=== PATIENT | female | born 2000 | race American Indian/Alaskan Native ===

== ENCOUNTER 2021-10-04 16:02 | Inpatient (IN) | payer OTHER ==
[2021-10-04] MEDS ORDERED: LACTATED RINGERS 500 ML IV ONE (17:00)
[2021-10-04 18:06] LABS: Hematocrit 32.1 % (30.3-42.9); Hemoglobin 10.3 gm/dl (10.1-14.3); Mean Corpuscular HGB Conc 32 % (30-34); Mean Corpuscular Volume 72 fl (79-97); Red Blood Count 4.47 M/mm3 (3.65-5.03); Red Cell Distribution Width 15.4 % (13.2-15.2)
[2021-10-04 18:26] LABS: Alanine Aminotransferase 11 units/L (7-56); Bilirubin,Urine NEG (Negative); Blood,Urine NEG (Negative); Color,Urine Yellow (Yellow); Protein,Urine <15 mg/dL mg/dL (Negative); Urobilinogen,Urine < 2.0 mg/dL (<2.0)
[2021-10-04 18:29] LABS: Platelet Count 131 K/mm3 (140-440)
[2021-10-04 18:32] LABS: Bacteria,Urine 2+ /HPF (Negative); Mucus,Urine FEW /HPF
[2021-10-04 19:00] LABS: Uric Acid 5.5 mg/dL (3.5-7.6)
[2021-10-04 19:03] LABS: Creatinine,Urine 71.4 mg/dL (0.1-20.0); Protein/Creatinine Ratio,Urine 0.31
--- NOTE | 2021-10-04 19:48 | History and Physical Report ---
History of Present Illness Date of examination: 10/04/21 Date of admission: 10/04/2021 Chief complaint: I was sent from the office. History of present illness: Pt is a @ 36.5 wks who presented to her visit with a c/o a MACK. It was noted during her visit that her blood pressure was 140/80. During her triage visit her blood pressure ranges 120-140's/80. Also of note her P/C ratio resulted as 0.31 and her platelet count 131. Her to this point has been uncomplicated. EDC Confirmation: 10/27/2021 Gestational Age: 36.5 weeks Past History : 1 Term Births: 0 Premature Births: 0 Living Children: 0 Para: 0 Mult. Births: 0 Prev : 0 Aborta: 0 Elect. Ab: 0 Spont. Ab: 0 Ectopics: 0 Past Medical History: Reviewed and updated today: Negative Past Medical History Past Surgical History: Reviewed and updated today: Negative Past Surgical History Family History Summary: Other Family Member - Has No Family History of Ovarvian Cancer - Entered On: 03/28/2021 Other Family Member - Has No Family History of Colon Cancer - Entered On: 03/28/2021 Other Family Member - Has Family History of Hypertension - Entered On: 03/28/2021 Other Family Member - Has Family History of Coronary Heart Disease - Entered On: 03/28/2021 Other Family Member - Has Family History Breast Cancer - Entered On: 03/28/2021 Social History: Marital Status: Single Children: 0 Occupation: [employer]/ [employer] student Smoking History: Patient has never smoked. Risk Factors: Smoked Tobacco Use: Never smoker Smokeless Tobacco Use: Never Counseled to Quit/Cut Down: yes Passive Smoke Exposure: no HIV High Risk Behavior: low risk Caffeine Use: 0 drinks per day Exercise: no Seatbelt Use: 100 % No Dietary Counseling Reason: pn yes Alcohol Use: yes Drinks per day: <1 Drug Use: yes Drug of Choice: marijuana Past Medical History Surgery (Non-compressor battery pellets): Negative Past Surgical History Abnormal PAP: negative Uterine Anomaly: negative Social Hx: Marital Status: Single Children: 0 Occupation: [employer]/ [employer] student Smoking History: Patient has never smoked. Infection History Hx of STD: none HIV Risk Eval: low risk Hepatitis B Risk Eval: low risk Personal hx. of genital herpes: no Genetic History Congenital Heart Defect: Mom: no Dad: no Kirk Disease: Mom: no Dad: no Thalassemia Mom: no Dad: no Neural Tube Defect Mom: no Dad: no Down's Syndrome Mom: no Dad: no Arley-Sachs Mom: no Dad: no Sickle Cell Disease/Trait Mom: no Dad: no Hemophilia Mom: no Dad: no Muscular Dystrophy Mom: no Dad: no Cystic Fibrosis Mom: no Dad: no Dary Chorea Mom: no Dad: no Mental Retardation Mom: no Dad: no Fragile X Mom: no Dad: no Other Genetic/Chromosomal Disorder Mom: no Dad: no Child w/other defect Mom: no Dad: no Active Medications (reviewed today): One Daily 27 mg iron- 800 mcg tablet ( vit [id number]) Take 1 tablet by mouth once a day Current Allergies (reviewed today): No known allergies Past History Past Medical History: no pertinent history Past Surgical History: no surgical history Family/Genetic History: heart disease, hypertension, cancer Social history: no significant social history - Obstetrical History Expected Date of Delivery: 10/27/21 Actual Gestation: 36 Week(s) 5 Day(s) : 1 Para: 0 Hx # Term Pregnancies: 0 Number of Pregnancies: 0 Spontaneous Abortions: 0 Induced : 0 Number of Living Children: 0 Medications and Allergies Allergies Allergy/AdvReac Type Severity Reaction Status Date / Time No Known Allergies Allergy Unverified 10/04/21 16:25 Review of Systems All systems: negative Neurological: headaches - Vital Signs Vital signs: Vital Signs Pulse Pulse Ox 103 H 100 10/04/21 16:30 10/04/21 16:30 Temp Pulse Resp BP Pulse Ox 82 18 122/69 97 10/04/21 19:25 10/04/21 16:58 10/04/21 19:22 10/04/21 19:25 - Physical Exam Breasts: Positive: deferred Cardiovascular: Regular rate Lungs: Positive: Normal air movement Abdomen: Positive: normal appearance, soft Uterus: Positive: normal size (For 36.5 wk .) Extremities: Positive: normal Deep Tendon Reflex Grade: Normal +2 - Obstetrical FHR: category 1 Uterine Contraction Monitor Mode: External Uterine Contraction Pattern: Absent Results Result Diagrams: 10/04/21 16:45 10/04/21 16:45 Abnormal lab results 10/04/21 10/04/21 10/04/21 Range/Units 16:45 16:45 16:45 MCV 72 L (79-97) fl MCH 23 L (28-32) pg RDW 15.4 H (13.2-15.2) % Plt Count 131 L (140-440) K/mm3 Lactate Dehydrogenase 224 H (91-180) units/L Urine WBC (Auto) 11.0 H (0.0-6.0) /HPF Urine Creatinine (0.1-20.0) mg/dL Urine Total Protein (5-11.8) mg/dL 10/04/21 Range/Units 16:45 MCV (79-97) fl MCH (28-32) pg RDW (13.2-15.2) % Plt Count (140-440) K/mm3 Lactate Dehydrogenase (91-180) units/L Urine WBC (Auto) (0.0-6.0) /HPF Urine Creatinine 71.4 H (0.1-20.0) mg/dL Urine Total Protein 22 H (5-11.8) mg/dL All other labs normal. GBS NEGATIVE HBsAg Screen Negative Negative *1 RPR Non Reactive Non Reactive *2 Rubella Antibodies, IgG 6.71 index Immune >0.99 *3 Non-immune <0.90 Equivocal 0.90 - 0.99 Immune >0.99 ABO Grouping A *4 Rh Factor Positive *5 Please note: Prior records for this patient's ABO / Rh type are not available for additional verification. Antibody Screen Negative Negative *6 Tests: (3) HB Solu + Rflx Fra (168320) Hemoglobin (Hgb) Solubility Negative Negative *39 Tests: (4) HIV Ag/Ab with Reflex ([id number]) HIV Screen 4th Generation wRfx Non Reactive Non Reactive *40 Tests: (5) HCV Antibody reflex to PIPO ([id number]) HCV Ab 0.1 s/co ratio 0.0-0.9 *41 Tests: (6) Interpretation: ([id number]) ! Interpretation: SPRCS *42 Negative Not infected with HCV, unless recent infection is suspected or other evidence exists to indicate HCV infection. Assessment and Plan A: 21 y.o. @ 36.5 wks, APU admission for elevated blood pressures. Hx of Alpha thalassemia carrier. - Patient Problems (1) Elevated blood pressure complicating , antepartum Current Visit: Yes Status: Acute Plan to address problem: Consulted with Dr. Esparza. Admit to APU. Initiate IV. Draw admission labs. Redraw pre eclampsia labs on 10/05 in the AM. Monitor for s/sx of pre eclampsia. Initiate 24 hour urine. (2) 36 to 37 weeks gestation of Current Visit: Yes Status: Acute Plan to address problem: Continue to monitor status through EFM. (3) Thalassemia alpha carrier Current Visit: Yes Status: Acute Plan to address problem: Monitor.
[2021-10-04] MEDS ORDERED: MAGNESIUM HYDROXIDE (MOM) ORAL LIQD UDC PO PRN (19:52)
[2021-10-04] MEDS ORDERED: DOCUSATE SODIUM 100 MG CAP PO PRN (19:52)
[2021-10-04] MEDS ORDERED: SIMETHICONE 80 MG CHEW TAB PO PRN (19:52)
[2021-10-04] MEDS ORDERED: ALUM-MAG HYDROXIDE-SIMETHICONE 200-200-20MG/5ML ORAL LIQD 30 ML PO PRN (19:52)
[2021-10-04] MEDS ORDERED: diphenhydrAMINE 25 MG CAP PO PRN (19:52)
[2021-10-04] MEDS ORDERED: ONDANSETRON 4 MG/2 ML INJ IV PRN (19:52)
[2021-10-05 08:10] LABS: Alanine Aminotransferase 11 units/L (7-56); Uric Acid 5.8 mg/dL (3.5-7.6)
--- NOTE | 2021-10-05 08:16 | Event Note ---
Date: 10/05/21 Upon entering room, pt lying right lateral in bed, lights off. Partner sleeping at bedside. cEFM in place. BP normotensive. Affirms movement and denies contractions, vaginal bleeding, LOF, chest pain, SOB, headaches, vision changes, and NVD. 24hr urine collection ongoing until 2239. No questions regarding plan of care at this time.
[2021-10-05 10:54] LABS: Hematocrit 31.1 % (30.3-42.9); Hemoglobin 10.1 gm/dl (10.1-14.3); Mean Corpuscular HGB Conc 32 % (30-34); Mean Corpuscular Volume 70 fl (79-97); Red Blood Count 4.42 M/mm3 (3.65-5.03); Red Cell Distribution Width 15.6 % (13.2-15.2)
[2021-10-05 10:58] LABS: Platelet Count 123 K/mm3 (140-440)
--- NOTE | 2021-10-06 09:07 | Progress Note ---
Assessment and Plan Dr Esparza consulted for POC. Pt denies MACK, RUQ pain, and vision changes. VSSAF. Lab results reviewed with pt and risks in with preeclampsia discussed, including but not limited to stroke, heart attack, seizure, and . IOL advised to start today and d/w pt. SVE performed and pt tolerated well. Ultrasound ordered for presentation. FHT's category 1, contractions noted. POC d/w RN and orders given for repeat labs, US, and IV fluid bolus for contractions. Discussed plan to start low dose pitocin if cephalic and unable to resolve contractions. RN requested to call once results received. - Patient Problems (1) 37 weeks gestation of Current Visit: Yes Status: Acute Plan to address problem: continuous monitoring with efm and toco (2) Preeclampsia Current Visit: Yes Status: Acute Plan to address problem: strict I&O monitor BP and ssx for worsening status seizure precautions (3) Thalassemia alpha carrier Current Visit: Yes Status: Acute Subjective - Subjective Date of service: 10/06/21 Principal diagnosis: IUP@37wks, Preeclampsia Patient reports: movement normal, no new complaints, no loss of fluid, no vaginal bleeding, no contractions Objective - Vital Signs Vital Signs: Vital Signs - 12hr 10/05/21 10/05/21 10/05/21 21:08 21:12 21:13 Temperature Pulse Rate 77 74 80 Respiratory Rate Blood Pressure 116/56 Blood Pressure [Left] O2 Sat by Pulse 98 98 Oximetry O2 Sat by Pulse Oximetry [ Anterior Bilateral Throughout] 10/05/21 10/05/21 10/05/21 21:18 21:23 21:28 Temperature Pulse Rate 77 84 79 Respiratory Rate Blood Pressure Blood Pressure [Left] O2 Sat by Pulse 98 97 97 Oximetry O2 Sat by Pulse Oximetry [ Anterior Bilateral Throughout] 10/05/21 10/05/21 10/05/21 21:33 21:38 21:43 Temperature Pulse Rate 92 H 74 81 Respiratory Rate Blood Pressure Blood Pressure [Left] O2 Sat by Pulse 99 96 97 Oximetry O2 Sat by Pulse Oximetry [ Anterior Bilateral Throughout] 10/05/21 10/05/21 10/05/21 21:48 21:53 21:58 Temperature Pulse Rate 82 83 74 Respiratory Rate Blood Pressure Blood Pressure [Left] O2 Sat by Pulse 97 98 99 Oximetry O2 Sat by Pulse Oximetry [ Anterior Bilateral Throughout] 10/05/21 10/05/21 10/05/21 22:03 22:08 22:12 Temperature Pulse Rate 82 80 76 Respiratory Rate Blood Pressure 120/68 Blood Pressure [Left] O2 Sat by Pulse 98 99 Oximetry O2 Sat by Pulse Oximetry [ Anterior Bilateral Throughout] 10/05/21 10/05/21 10/05/21 22:13 22:18 22:23 Temperature Pulse Rate 71 83 71 Respiratory Rate Blood Pressure Blood Pressure [Left] O2 Sat by Pulse 98 98 99 Oximetry O2 Sat by Pulse Oximetry [ Anterior Bilateral Throughout] 10/05/21 10/05/21 10/05/21 22:28 22:33 22:38 Temperature Pulse Rate 98 H 85 95 H Respiratory Rate Blood Pressure Blood Pressure [Left] O2 Sat by Pulse 100 100 99 Oximetry O2 Sat by Pulse Oximetry [ Anterior Bilateral Throughout] 10/05/21 10/05/21 10/05/21 22:43 22:48 22:53 Temperature Pulse Rate 73 94 H 78 Respiratory Rate Blood Pressure Blood Pressure [Left] O2 Sat by Pulse 100 99 99 Oximetry O2 Sat by Pulse Oximetry [ Anterior Bilateral Throughout] 10/05/21 10/05/21 10/05/21 22:58 23:03 23:08 Temperature Pulse Rate 80 97 H 82 Respiratory Rate Blood Pressure Blood Pressure [Left] O2 Sat by Pulse 98 98 99 Oximetry O2 Sat by Pulse Oximetry [ Anterior Bilateral Throughout] 10/05/21 10/05/21 10/05/21 23:12 23:13 23:18 Temperature Pulse Rate 85 94 H 121 H Respiratory Rate Blood Pressure 133/81 Blood Pressure [Left] O2 Sat by Pulse 98 99 Oximetry O2 Sat by Pulse Oximetry [ Anterior Bilateral Throughout] 10/05/21 10/05/21 10/05/21 23:23 23:28 23:33 Temperature Pulse Rate 102 H 90 83 Respiratory Rate Blood Pressure Blood Pressure [Left] O2 Sat by Pulse 99 99 99 Oximetry O2 Sat by Pulse Oximetry [ Anterior Bilateral Throughout] 10/05/21 10/05/21 10/05/21 23:38 23:43 23:48 Temperature Pulse Rate 90 90 94 H Respiratory Rate Blood Pressure Blood Pressure [Left] O2 Sat by Pulse 99 99 99 Oximetry O2 Sat by Pulse Oximetry [ Anterior Bilateral Throughout] 10/05/21 10/05/21 10/06/21 23:53 23:58 00:03 Temperature Pulse Rate 105 H 85 94 H Respiratory Rate Blood Pressure Blood Pressure [Left] O2 Sat by Pulse 100 100 99 Oximetry O2 Sat by Pulse Oximetry [ Anterior Bilateral Throughout] 10/06/21 10/06/21 10/06/21 00:08 00:12 00:13 Temperature Pulse Rate 80 97 H 89 Respiratory Rate Blood Pressure 133/77 Blood Pressure [Left] O2 Sat by Pulse 100 98 Oximetry O2 Sat by Pulse Oximetry [ Anterior Bilateral Throughout] 10/06/21 10/06/21 10/06/21 00:18 00:23 00:28 Temperature Pulse Rate 99 H 87 99 H Respiratory Rate Blood Pressure Blood Pressure [Left] O2 Sat by Pulse 100 99 99 Oximetry O2 Sat by Pulse Oximetry [ Anterior Bilateral Throughout] 10/06/21 10/06/21 10/06/21 00:33 00:37 00:38 Temperature Pulse Rate 106 H 106 H 98 H Respiratory Rate Blood Pressure Blood Pressure [Left] O2 Sat by Pulse 99 92 99 Oximetry O2 Sat by Pulse Oximetry [ Anterior Bilateral Throughout] 10/06/21 10/06/21 10/06/21 00:43 00:48 00:53 Temperature Pulse Rate 98 H 89 87 Respiratory Rate Blood Pressure Blood Pressure [Left] O2 Sat by Pulse 99 100 99 Oximetry O2 Sat by Pulse Oximetry [ Anterior Bilateral Throughout] 10/06/21 10/06/21 10/06/21 00:58 01:03 01:08 Temperature Pulse Rate 74 82 86 Respiratory Rate Blood Pressure Blood Pressure [Left] O2 Sat by Pulse 99 98 99 Oximetry O2 Sat by Pulse Oximetry [ Anterior Bilateral Throughout] 10/06/21 10/06/21 10/06/21 01:12 01:13 01:18 Temperature Pulse Rate 89 97 H 94 H Respiratory Rate Blood Pressure 135/82 Blood Pressure [Left] O2 Sat by Pulse 100 98 Oximetry O2 Sat by Pulse Oximetry [ Anterior Bilateral Throughout] 10/06/21 10/06/21 10/06/21 01:23 01:28 01:33 Temperature Pulse Rate 81 84 99 H Respiratory Rate Blood Pressure Blood Pressure [Left] O2 Sat by Pulse 99 100 99 Oximetry O2 Sat by Pulse Oximetry [ Anterior Bilateral Throughout] 10/06/21 10/06/21 10/06/21 01:38 01:43 01:48 Temperature Pulse Rate 89 92 H 80 Respiratory Rate Blood Pressure Blood Pressure [Left] O2 Sat by Pulse 100 99 99 Oximetry O2 Sat by Pulse Oximetry [ Anterior Bilateral Throughout] 10/06/21 10/06/21 10/06/21 01:53 01:58 02:03 Temperature Pulse Rate 93 H 81 85 Respiratory Rate Blood Pressure Blood Pressure [Left] O2 Sat by Pulse 98 99 99 Oximetry O2 Sat by Pulse Oximetry [ Anterior Bilateral Throughout] 10/06/21 10/06/21 10/06/21 02:08 02:13 02:18 Temperature Pulse Rate 84 78 82 Respiratory Rate Blood Pressure Blood Pressure [Left] O2 Sat by Pulse 100 99 99 Oximetry O2 Sat by Pulse Oximetry [ Anterior Bilateral Throughout] 10/06/21 10/06/21 10/06/21 02:23 02:28 02:33 Temperature Pulse Rate 83 88 102 H Respiratory Rate Blood Pressure Blood Pressure [Left] O2 Sat by Pulse 98 98 99 Oximetry O2 Sat by Pulse Oximetry [ Anterior Bilateral Throughout] 10/06/21 10/06/21 10/06/21 02:38 02:43 02:48 Temperature Pulse Rate 86 79 75 Respiratory Rate Blood Pressure Blood Pressure [Left] O2 Sat by Pulse 99 98 98 Oximetry O2 Sat by Pulse Oximetry [ Anterior Bilateral Throughout] 10/06/21 10/06/21 10/06/21 02:53 02:58 03:03 Temperature Pulse Rate 92 H 80 79 Respiratory Rate Blood Pressure Blood Pressure [Left] O2 Sat by Pulse 100 99 98 Oximetry O2 Sat by Pulse Oximetry [ Anterior Bilateral Throughout] 10/06/21 10/06/21 10/06/21 03:08 03:13 03:18 Temperature Pulse Rate 82 95 H 84 Respiratory Rate Blood Pressure Blood Pressure [Left] O2 Sat by Pulse 98 98 97 Oximetry O2 Sat by Pulse Oximetry [ Anterior Bilateral Throughout] 10/06/21 10/06/21 10/06/21 03:23 03:28 03:33 Temperature Pulse Rate 78 74 74 Respiratory Rate Blood Pressure Blood Pressure [Left] O2 Sat by Pulse 98 98 98 Oximetry O2 Sat by Pulse Oximetry [ Anterior Bilateral Throughout] 10/06/21 10/06/21 10/06/21 03:38 03:43 03:48 Temperature Pulse Rate 75 82 77 Respiratory Rate Blood Pressure Blood Pressure [Left] O2 Sat by Pulse 98 99 99 Oximetry O2 Sat by Pulse Oximetry [ Anterior Bilateral Throughout] 10/06/21 10/06/21 10/06/21 03:53 03:58 04:03 Temperature Pulse Rate 82 74 80 Respiratory Rate Blood Pressure Blood Pressure [Left] O2 Sat by Pulse 99 98 98 Oximetry O2 Sat by Pulse Oximetry [ Anterior Bilateral Throughout] 10/06/21 10/06/21 10/06/21 04:08 04:12 04:13 Temperature Pulse Rate 78 102 H 74 Respiratory Rate Blood Pressure 126/81 Blood Pressure [Left] O2 Sat by Pulse 98 99 Oximetry O2 Sat by Pulse Oximetry [ Anterior Bilateral Throughout] 10/06/21 10/06/21 10/06/21 04:18 04:23 04:28 Temperature Pulse Rate 80 86 79 Respiratory Rate Blood Pressure Blood Pressure [Left] O2 Sat by Pulse 98 98 98 Oximetry O2 Sat by Pulse Oximetry [ Anterior Bilateral Throughout] 10/06/21 10/06/21 10/06/21 04:33 04:38 04:43 Temperature Pulse Rate 74 85 80 Respiratory Rate Blood Pressure Blood Pressure [Left] O2 Sat by Pulse 99 98 99 Oximetry O2 Sat by Pulse Oximetry [ Anterior Bilateral Throughout] 10/06/21 10/06/21 10/06/21 04:48 04:53 04:58 Temperature Pulse Rate 118 H 85 86 Respiratory Rate Blood Pressure Blood Pressure [Left] O2 Sat by Pulse 98 98 97 Oximetry O2 Sat by Pulse Oximetry [ Anterior Bilateral Throughout] 10/06/21 10/06/21 10/06/21 05:03 05:08 05:12 Temperature Pulse Rate 98 H 89 81 Respiratory Rate Blood Pressure 127/75 Blood Pressure [Left] O2 Sat by Pulse 98 99 Oximetry O2 Sat by Pulse Oximetry [ Anterior Bilateral Throughout] 10/06/21 10/06/21 10/06/21 05:13 05:18 05:23 Temperature Pulse Rate 79 85 76 Respiratory Rate Blood Pressure Blood Pressure [Left] O2 Sat by Pulse 96 98 97 Oximetry O2 Sat by Pulse Oximetry [ Anterior Bilateral Throughout] 10/06/21 10/06/21 10/06/21 05:28 05:33 05:38 Temperature Pulse Rate 74 71 78 Respiratory Rate Blood Pressure Blood Pressure [Left] O2 Sat by Pulse 97 96 96 Oximetry O2 Sat by Pulse Oximetry [ Anterior Bilateral Throughout] 10/06/21 10/06/21 10/06/21 05:43 05:48 05:53 Temperature Pulse Rate 82 75 72 Respiratory Rate Blood Pressure Blood Pressure [Left] O2 Sat by Pulse 96 97 97 Oximetry O2 Sat by Pulse Oximetry [ Anterior Bilateral Throughout] 10/06/21 10/06/21 10/06/21 05:58 06:03 06:08 Temperature Pulse Rate 82 76 82 Respiratory Rate Blood Pressure Blood Pressure [Left] O2 Sat by Pulse 97 97 97 Oximetry O2 Sat by Pulse Oximetry [ Anterior Bilateral Throughout] 10/06/21 10/06/21 10/06/21 06:12 06:13 06:18 Temperature Pulse Rate 83 83 79 Respiratory Rate Blood Pressure 141/86 Blood Pressure [Left] O2 Sat by Pulse 97 97 Oximetry O2 Sat by Pulse Oximetry [ Anterior Bilateral Throughout] 10/06/21 10/06/21 10/06/21 06:23 06:28 06:33 Temperature Pulse Rate 68 85 75 Respiratory Rate Blood Pressure Blood Pressure [Left] O2 Sat by Pulse 98 97 97 Oximetry O2 Sat by Pulse Oximetry [ Anterior Bilateral Throughout] 10/06/21 10/06/21 10/06/21 06:38 06:43 06:48 Temperature Pulse Rate 75 79 85 Respiratory Rate Blood Pressure Blood Pressure [Left] O2 Sat by Pulse 97 97 97 Oximetry O2 Sat by Pulse Oximetry [ Anterior Bilateral Throughout] 10/06/21 10/06/21 10/06/21 06:53 06:58 07:03 Temperature Pulse Rate 87 78 89 Respiratory Rate Blood Pressure Blood Pressure [Left] O2 Sat by Pulse 98 97 98 Oximetry O2 Sat by Pulse Oximetry [ Anterior Bilateral Throughout] 10/06/21 10/06/21 10/06/21 07:08 07:12 07:13 Temperature Pulse Rate 86 78 73 Respiratory Rate Blood Pressure 120/70 Blood Pressure [Left] O2 Sat by Pulse 97 96 Oximetry O2 Sat by Pulse Oximetry [ Anterior Bilateral Throughout] 10/06/21 10/06/21 10/06/21 07:18 07:23 07:28 Temperature Pulse Rate 89 89 72 Respiratory Rate Blood Pressure Blood Pressure [Left] O2 Sat by Pulse 98 97 96 Oximetry O2 Sat by Pulse Oximetry [ Anterior Bilateral Throughout] 10/06/21 10/06/21 10/06/21 07:33 07:38 07:43 Temperature Pulse Rate 81 76 104 H Respiratory Rate Blood Pressure Blood Pressure [Left] O2 Sat by Pulse 96 97 96 Oximetry O2 Sat by Pulse Oximetry [ Anterior Bilateral Throughout] 10/06/21 10/06/21 10/06/21 07:48 07:53 07:58 Temperature Pulse Rate 101 H 95 H 79 Respiratory Rate Blood Pressure Blood Pressure [Left] O2 Sat by Pulse 97 96 96 Oximetry O2 Sat by Pulse Oximetry [ Anterior Bilateral Throughout] 10/06/21 10/06/21 10/06/21 08:03 08:08 08:12 Temperature Pulse Rate 75 89 77 Respiratory Rate Blood Pressure 110/58 Blood Pressure [Left] O2 Sat by Pulse 97 96 Oximetry O2 Sat by Pulse Oximetry [ Anterior Bilateral Throughout] 10/06/21 10/06/21 10/06/21 08:13 08:18 08:22 Temperature 98.5 F Pulse Rate 78 78 79 Respiratory 16 Rate Blood Pressure Blood Pressure 117/62 [Left] O2 Sat by Pulse 97 98 98 Oximetry O2 Sat by Pulse 99 Oximetry [ Anterior Bilateral Throughout] 10/06/21 10/06/21 10/06/21 08:23 08:26 08:28 Temperature Pulse Rate 74 81 90 Respiratory Rate Blood Pressure 117/62 Blood Pressure [Left] O2 Sat by Pulse 99 99 Oximetry O2 Sat by Pulse Oximetry [ Anterior Bilateral Throughout] 10/06/21 10/06/21 10/06/21 08:33 08:38 08:43 Temperature Pulse Rate 115 H 94 H 100 H Respiratory Rate Blood Pressure Blood Pressure [Left] O2 Sat by Pulse 94 99 98 Oximetry O2 Sat by Pulse Oximetry [ Anterior Bilateral Throughout] 10/06/21 10/06/21 10/06/21 08:48 08:53 08:58 Temperature Pulse Rate 85 84 100 H Respiratory Rate Blood Pressure Blood Pressure [Left] O2 Sat by Pulse 98 98 95 Oximetry O2 Sat by Pulse Oximetry [ Anterior Bilateral Throughout] 10/06/21 09:03 Temperature Pulse Rate 80 Respiratory Rate Blood Pressure Blood Pressure [Left] O2 Sat by Pulse 100 Oximetry O2 Sat by Pulse Oximetry [ Anterior Bilateral Throughout] - Exam Breasts: deferred Lungs: Normal air movement Abdomen: Present: normal appearance, soft. Absent: distention, tenderness, guarding Vulva: both: normal Uterus: Present: normal, other (gravid) FHR: auscultation normal, category 1 Uterine Contraction Monitor Mode: External Cervical Dilatation: 0 Cervical Effacement Percentage: 0 station: OOP Uterine Contraction Pattern: Irregular Uterine Tone Measurement Phase: Resting Extremities: normal - Labs Labs: Abnormal Labs 10/04/21 10/04/21 10/04/21 16:45 16:45 16:45 MCV 72 L MCH 23 L RDW 15.4 H Plt Count 131 L Lactate Dehydrogenase 224 H Urine WBC (Auto) 11.0 H Urine Creatinine Ur Total Protein 24 Hr Urine Total Protein 10/04/21 10/04/21 10/05/21 16:45 Unknown 07:20 MCV 70 L MCH 23 L RDW 15.6 H Plt Count 123 L Lactate Dehydrogenase Urine WBC (Auto) Urine Creatinine 71.4 H Ur Total Protein 24 Hr 390.00 H Urine Total Protein 22 H 39 H 10/05/21 07:20 MCV MCH RDW Plt Count Lactate Dehydrogenase 220 H Urine WBC (Auto) Urine Creatinine Ur Total Protein 24 Hr Urine Total Protein Laboratory Results - last 24 hr 10/04/21 10/05/21 10/05/21 Unknown 07:20 10:06 WBC 6.7 RBC 4.42 Hgb 10.1 Hct 31.1 MCV 70 L MCH 23 L MCHC 32 RDW 15.6 H Plt Count 123 L Urine Total Volume 1000 Ur Total Protein 24 Hr 390.00 H Urine Total Protein 39 H SARS-CoV-2 (PCR) Negative
[2021-10-06 10:27] LABS: Hematocrit 31.8 % (30.3-42.9); Hemoglobin 10.4 gm/dl (10.1-14.3); Mean Corpuscular HGB Conc 33 % (30-34); Mean Corpuscular Volume 70 fl (79-97); Red Blood Count 4.54 M/mm3 (3.65-5.03); Red Cell Distribution Width 15.6 % (13.2-15.2)
[2021-10-06 10:30] LABS: Platelet Count 123 K/mm3 (140-440)
--- NOTE | 2021-10-06 10:40 | Ultrasound Report ---
US OB limited INDICATION / CLINICAL INFORMATION: presentation. COMPARISON: None available. FINDINGS/IMPRESSION: lie is cephalic. heart rate is 156. Signer Name: Beau Ogden MD Signed: 10/06/2021 10:36 AM Workstation Name: [id number]
[2021-10-06 10:44] LABS: Alanine Aminotransferase 18 units/L (7-56); Uric Acid 5.5 mg/dL (3.5-7.6)
[2021-10-06] MEDS: LACTATED RINGERS 1,000 ML IV SCH (11:42)
[2021-10-06] MEDS: PRENATAL VIT27-FE FUMARATE-FOLIC ACID VIT TAB PO SCH (11:42)
[2021-10-06] MEDS ORDERED: OXYTOCIN DRIP 30 UNITS/500 ML BAG IV SCH (13:00)
--- NOTE | 2021-10-06 17:20 | Event Note ---
Date: 10/06/21 Patient resting in bed no complaints. Vital signs reviewed. Stable. Labs also reviewed. FHTs category 1 irregular contractions. Contractions have significantly spaced out since earlier today. Intrauterine at 37 weeks preeclampsia. She was changed to an inpatient for induction of labor. Earlier today she was lukas too freq uently for Cervidil, Pitocin was ordered however due to nursing shortage Pitocin has not been able to get started. Now the contractions are spaced out we will plan for Cervidil tonight. Patient was informed of plan of care questions were encouraged and answered she voiced understanding and agrees with plan of care
[2021-10-06] MEDS: ACETAMINOPHEN 325 MG TAB PO PRN (19:01)
[2021-10-06] MEDS ORDERED: DINOPROSTONE 10 MG VAG SUPP VG ONE (20:00)
--- NOTE | 2021-10-07 07:37 | Progress Note ---
Assessment and Plan pt c/o ctx but denies need for pain medication at this time. Cervidil removed - SVE /-1, slightly posterior. small amount of bloody show. Pt denies MACK/visual changes/epigastric pain. b/p normotensive. Pt to have AM care and breakfast, then start pitocin. pain interventions reviewed. Epidural PRN. Discussed plan of care with patient, all questions addressed. - Patient Problems (1) 37 weeks gestation of Current Visit: Yes Status: Acute Plan to address problem: CAT 1 tracing (2) Preeclampsia Current Visit: Yes Status: Acute Qualifiers: Trimester: third trimester Qualified Code(s): O14.93 - Unspecified pre- eclampsia, third trimester Plan to address problem: Continue with IOL today Monitor b/p and urine output Start mag for b/p's in severe range in labor, will give 24hrs of mag sulfate post delivery Subjective - Subjective Date of service: 10/07/21 Principal diagnosis: IUP@37+1 wks, Preeclampsia Patient reports: movement normal, contractions, no new complaints, no loss of fluid, no vaginal bleeding Objective - Vital Signs Vital Signs: Vital Signs - 12hr 10/06/21 10/06/21 10/06/21 19:37 19:42 19:47 Temperature Pulse Rate 104 H 105 H 103 H Respiratory Rate Blood Pressure O2 Sat by Pulse 100 100 100 Oximetry O2 Sat by Pulse Oximetry [ Anterior Bilateral Throughout] 10/06/21 10/06/21 10/06/21 19:52 19:53 19:57 Temperature Pulse Rate 103 H 93 H Respiratory Rate Blood Pressure O2 Sat by Pulse 99 100 Oximetry O2 Sat by Pulse 100 Oximetry [ Anterior Bilateral Throughout] 10/06/21 10/06/21 10/06/21 19:59 20:02 20:07 Temperature Pulse Rate 108 H 88 95 H Respiratory Rate Blood Pressure 130/74 O2 Sat by Pulse 99 100 Oximetry O2 Sat by Pulse Oximetry [ Anterior Bilateral Throughout] 10/06/21 10/06/21 10/06/21 20:12 20:17 20:22 Temperature Pulse Rate 97 H 105 H 101 H Respiratory Rate Blood Pressure O2 Sat by Pulse 100 100 100 Oximetry O2 Sat by Pulse Oximetry [ Anterior Bilateral Throughout] 10/06/21 10/06/21 10/06/21 20:27 20:30 20:34 Temperature 98.5 F Pulse Rate 101 H 125 H Respiratory Rate Blood Pressure 140/88 O2 Sat by Pulse 99 100 Oximetry O2 Sat by Pulse Oximetry [ Anterior Bilateral Throughout] 10/06/21 10/06/21 10/06/21 20:39 20:44 20:49 Temperature Pulse Rate 100 H 82 79 Respiratory Rate Blood Pressure O2 Sat by Pulse 100 100 99 Oximetry O2 Sat by Pulse Oximetry [ Anterior Bilateral Throughout] 10/06/21 10/06/21 10/06/21 20:54 20:58 20:59 Temperature Pulse Rate 84 92 H 82 Respiratory Rate Blood Pressure 120/76 O2 Sat by Pulse 100 100 Oximetry O2 Sat by Pulse Oximetry [ Anterior Bilateral Throughout] 10/06/21 10/06/21 10/06/21 21:04 21:09 21:14 Temperature Pulse Rate 83 88 82 Respiratory Rate Blood Pressure O2 Sat by Pulse 100 99 100 Oximetry O2 Sat by Pulse Oximetry [ Anterior Bilateral Throughout] 10/06/21 10/06/21 10/06/21 21:19 21:24 21:27 Temperature Pulse Rate 77 79 76 Respiratory Rate Blood Pressure 123/71 O2 Sat by Pulse 100 100 Oximetry O2 Sat by Pulse Oximetry [ Anterior Bilateral Throughout] 10/06/21 10/06/21 10/06/21 21:29 21:34 21:39 Temperature Pulse Rate 98 H 76 71 Respiratory Rate Blood Pressure O2 Sat by Pulse 100 99 100 Oximetry O2 Sat by Pulse Oximetry [ Anterior Bilateral Throughout] 10/06/21 10/06/21 10/06/21 21:44 21:49 21:54 Temperature Pulse Rate 72 92 H 74 Respiratory Rate Blood Pressure O2 Sat by Pulse 100 99 100 Oximetry O2 Sat by Pulse Oximetry [ Anterior Bilateral Throughout] 10/06/21 10/06/21 10/06/21 21:59 22:04 22:09 Temperature Pulse Rate 93 H 77 90 Respiratory Rate Blood Pressure 126/78 O2 Sat by Pulse 99 99 99 Oximetry O2 Sat by Pulse Oximetry [ Anterior Bilateral Throughout] 10/06/21 10/06/21 10/06/21 22:14 22:19 22:24 Temperature Pulse Rate 89 87 102 H Respiratory Rate Blood Pressure O2 Sat by Pulse 100 100 100 Oximetry O2 Sat by Pulse Oximetry [ Anterior Bilateral Throughout] 10/06/21 10/06/21 10/06/21 22:28 22:29 22:34 Temperature Pulse Rate 78 80 83 Respiratory Rate Blood Pressure 131/80 O2 Sat by Pulse 100 100 Oximetry O2 Sat by Pulse Oximetry [ Anterior Bilateral Throughout] 10/06/21 10/06/21 10/06/21 22:39 22:44 22:49 Temperature Pulse Rate 74 87 84 Respiratory Rate Blood Pressure O2 Sat by Pulse 100 100 100 Oximetry O2 Sat by Pulse Oximetry [ Anterior Bilateral Throughout] 10/06/21 10/06/21 10/06/21 22:54 22:58 22:59 Temperature Pulse Rate 94 H 71 92 H Respiratory Rate Blood Pressure 133/92 O2 Sat by Pulse 100 100 Oximetry O2 Sat by Pulse Oximetry [ Anterior Bilateral Throughout] 10/06/21 10/06/21 10/06/21 23:04 23:10 23:15 Temperature Pulse Rate 91 H 114 H Respiratory Rate Blood Pressure O2 Sat by Pulse 100 96 100 Oximetry O2 Sat by Pulse Oximetry [ Anterior Bilateral Throughout] 10/06/21 10/06/21 10/06/21 23:20 23:25 23:29 Temperature Pulse Rate 74 95 H 70 Respiratory Rate Blood Pressure 138/83 O2 Sat by Pulse 100 100 Oximetry O2 Sat by Pulse Oximetry [ Anterior Bilateral Throughout] 10/06/21 10/06/21 10/06/21 23:30 23:35 23:40 Temperature Pulse Rate 77 80 76 Respiratory Rate Blood Pressure O2 Sat by Pulse 100 100 99 Oximetry O2 Sat by Pulse Oximetry [ Anterior Bilateral Throughout] 10/06/21 10/06/21 10/06/21 23:45 23:50 23:55 Temperature Pulse Rate 77 75 72 Respiratory Rate Blood Pressure O2 Sat by Pulse 100 100 99 Oximetry O2 Sat by Pulse Oximetry [ Anterior Bilateral Throughout] 10/06/21 10/07/21 10/07/21 23:57 00:00 00:05 Temperature Pulse Rate 86 67 70 Respiratory Rate Blood Pressure 118/66 O2 Sat by Pulse 100 100 Oximetry O2 Sat by Pulse Oximetry [ Anterior Bilateral Throughout] 10/07/21 10/07/21 10/07/21 00:10 00:15 00:20 Temperature Pulse Rate 74 76 78 Respiratory Rate Blood Pressure O2 Sat by Pulse 100 100 100 Oximetry O2 Sat by Pulse Oximetry [ Anterior Bilateral Throughout] 10/07/21 10/07/21 10/07/21 00:25 00:28 00:30 Temperature Pulse Rate 72 70 72 Respiratory Rate Blood Pressure 122/82 O2 Sat by Pulse 100 99 Oximetry O2 Sat by Pulse Oximetry [ Anterior Bilateral Throughout] 10/07/21 10/07/21 10/07/21 00:35 00:40 00:45 Temperature Pulse Rate 80 109 H 68 Respiratory Rate Blood Pressure O2 Sat by Pulse 99 100 100 Oximetry O2 Sat by Pulse Oximetry [ Anterior Bilateral Throughout] 10/07/21 10/07/21 10/07/21 00:50 00:55 00:57 Temperature Pulse Rate 78 70 68 Respiratory Rate Blood Pressure 124/68 O2 Sat by Pulse 100 100 Oximetry O2 Sat by Pulse Oximetry [ Anterior Bilateral Throughout] 10/07/21 10/07/21 10/07/21 01:00 01:05 01:10 Temperature Pulse Rate 84 72 76 Respiratory Rate Blood Pressure O2 Sat by Pulse 100 100 99 Oximetry O2 Sat by Pulse Oximetry [ Anterior Bilateral Throughout] 10/07/21 10/07/21 10/07/21 01:15 01:20 01:25 Temperature Pulse Rate 74 70 75 Respiratory Rate Blood Pressure O2 Sat by Pulse 99 99 99 Oximetry O2 Sat by Pulse Oximetry [ Anterior Bilateral Throughout] 10/07/21 10/07/21 10/07/21 01:27 01:30 01:35 Temperature Pulse Rate 78 77 86 Respiratory Rate Blood Pressure 112/61 O2 Sat by Pulse 99 98 Oximetry O2 Sat by Pulse Oximetry [ Anterior Bilateral Throughout] 10/07/21 10/07/21 10/07/21 01:40 01:45 01:50 Temperature Pulse Rate 74 93 H 79 Respiratory Rate Blood Pressure O2 Sat by Pulse 98 98 98 Oximetry O2 Sat by Pulse Oximetry [ Anterior Bilateral Throughout] 10/07/21 10/07/21 10/07/21 01:55 01:58 02:00 Temperature Pulse Rate 83 82 82 Respiratory Rate Blood Pressure 124/68 O2 Sat by Pulse 98 99 Oximetry O2 Sat by Pulse Oximetry [ Anterior Bilateral Throughout] 10/07/21 10/07/21 10/07/21 02:05 02:10 02:15 Temperature Pulse Rate 82 96 H 85 Respiratory Rate Blood Pressure O2 Sat by Pulse 99 98 98 Oximetry O2 Sat by Pulse Oximetry [ Anterior Bilateral Throughout] 10/07/21 10/07/21 10/07/21 02:20 02:25 02:28 Temperature Pulse Rate 105 H 94 H 97 H Respiratory Rate Blood Pressure 129/65 O2 Sat by Pulse 98 98 Oximetry O2 Sat by Pulse Oximetry [ Anterior Bilateral Throughout] 10/07/21 10/07/21 10/07/21 02:30 02:35 02:40 Temperature Pulse Rate 81 76 85 Respiratory Rate Blood Pressure O2 Sat by Pulse 99 99 100 Oximetry O2 Sat by Pulse Oximetry [ Anterior Bilateral Throughout] 10/07/21 10/07/21 10/07/21 02:46 02:51 02:56 Temperature Pulse Rate 110 H 81 87 Respiratory Rate Blood Pressure O2 Sat by Pulse 0 L 100 100 Oximetry O2 Sat by Pulse Oximetry [ Anterior Bilateral Throughout] 10/07/21 10/07/21 10/07/21 02:58 03:01 03:06 Temperature Pulse Rate 90 80 76 Respiratory Rate Blood Pressure 120/75 O2 Sat by Pulse 99 99 Oximetry O2 Sat by Pulse Oximetry [ Anterior Bilateral Throughout] 10/07/21 10/07/21 10/07/21 03:11 03:16 03:21 Temperature Pulse Rate 109 H 93 H 80 Respiratory Rate Blood Pressure O2 Sat by Pulse 100 100 100 Oximetry O2 Sat by Pulse Oximetry [ Anterior Bilateral Throughout] 10/07/21 10/07/21 10/07/21 03:26 03:29 03:31 Temperature Pulse Rate 78 86 92 H Respiratory Rate Blood Pressure 119/58 O2 Sat by Pulse 99 98 Oximetry O2 Sat by Pulse Oximetry [ Anterior Bilateral Throughout] 10/07/21 10/07/21 10/07/21 03:36 03:41 03:46 Temperature Pulse Rate 97 H 84 87 Respiratory Rate Blood Pressure O2 Sat by Pulse 98 98 98 Oximetry O2 Sat by Pulse Oximetry [ Anterior Bilateral Throughout] 10/07/21 10/07/21 10/07/21 03:51 03:56 03:58 Temperature Pulse Rate 84 95 H 82 Respiratory Rate Blood Pressure 119/59 O2 Sat by Pulse 98 98 Oximetry O2 Sat by Pulse Oximetry [ Anterior Bilateral Throughout] 10/07/21 10/07/21 10/07/21 03:59 04:01 04:06 Temperature Pulse Rate 91 H 85 Respiratory 16 Rate Blood Pressure O2 Sat by Pulse 97 98 Oximetry O2 Sat by Pulse Oximetry [ Anterior Bilateral Throughout] 10/07/21 10/07/21 10/07/21 04:11 04:16 04:21 Temperature Pulse Rate 74 80 90 Respiratory Rate Blood Pressure O2 Sat by Pulse 98 97 97 Oximetry O2 Sat by Pulse Oximetry [ Anterior Bilateral Throughout] 10/07/21 10/07/21 10/07/21 04:26 04:27 04:31 Temperature Pulse Rate 82 88 86 Respiratory Rate Blood Pressure 116/59 O2 Sat by Pulse 97 97 Oximetry O2 Sat by Pulse Oximetry [ Anterior Bilateral Throughout] 10/07/21 10/07/21 10/07/21 04:36 04:41 04:46 Temperature Pulse Rate 101 H 86 88 Respiratory Rate Blood Pressure O2 Sat by Pulse 97 97 97 Oximetry O2 Sat by Pulse Oximetry [ Anterior Bilateral Throughout] 10/07/21 10/07/21 10/07/21 04:51 04:56 04:58 Temperature Pulse Rate 89 99 H 88 Respiratory Rate Blood Pressure 114/57 O2 Sat by Pulse 97 97 Oximetry O2 Sat by Pulse Oximetry [ Anterior Bilateral Throughout] 10/07/21 10/07/21 10/07/21 05:01 05:06 05:11 Temperature Pulse Rate 101 H 100 H 107 H Respiratory Rate Blood Pressure O2 Sat by Pulse 98 98 98 Oximetry O2 Sat by Pulse Oximetry [ Anterior Bilateral Throughout] 10/07/21 10/07/21 10/07/21 05:16 05:21 05:26 Temperature Pulse Rate 104 H 92 H 93 H Respiratory Rate Blood Pressure O2 Sat by Pulse 99 98 98 Oximetry O2 Sat by Pulse Oximetry [ Anterior Bilateral Throughout] 10/07/21 10/07/21 10/07/21 05:28 05:31 05:36 Temperature Pulse Rate 100 H 92 H 88 Respiratory Rate Blood Pressure 126/59 O2 Sat by Pulse 98 97 Oximetry O2 Sat by Pulse Oximetry [ Anterior Bilateral Throughout] 10/07/21 10/07/21 10/07/21 05:41 05:46 05:51 Temperature Pulse Rate 96 H 89 101 H Respiratory Rate Blood Pressure O2 Sat by Pulse 97 97 97 Oximetry O2 Sat by Pulse Oximetry [ Anterior Bilateral Throughout] 10/07/21 10/07/21 10/07/21 05:56 05:58 06:01 Temperature Pulse Rate 99 H 108 H 99 H Respiratory Rate Blood Pressure 122/61 O2 Sat by Pulse 97 98 Oximetry O2 Sat by Pulse Oximetry [ Anterior Bilateral Throughout] 10/07/21 10/07/21 10/07/21 06:06 06:11 06:21 Temperature Pulse Rate 106 H 100 H 94 H Respiratory Rate Blood Pressure O2 Sat by Pulse 97 97 100 Oximetry O2 Sat by Pulse Oximetry [ Anterior Bilateral Throughout] 10/07/21 10/07/21 10/07/21 06:26 06:27 06:31 Temperature Pulse Rate 92 H 90 98 H Respiratory Rate Blood Pressure 115/70 O2 Sat by Pulse 99 99 Oximetry O2 Sat by Pulse Oximetry [ Anterior Bilateral Throughout] 10/07/21 10/07/21 10/07/21 06:36 06:41 06:46 Temperature Pulse Rate 91 H 92 H 86 Respiratory Rate Blood Pressure O2 Sat by Pulse 99 100 99 Oximetry O2 Sat by Pulse Oximetry [ Anterior Bilateral Throughout] 10/07/21 10/07/21 10/07/21 06:51 06:56 06:58 Temperature Pulse Rate 87 108 H 87 Respiratory Rate Blood Pressure 130/79 O2 Sat by Pulse 99 100 Oximetry O2 Sat by Pulse Oximetry [ Anterior Bilateral Throughout] 10/07/21 10/07/21 10/07/21 07:01 07:06 07:11 Temperature Pulse Rate 98 H 92 H 86 Respiratory Rate Blood Pressure O2 Sat by Pulse 99 100 100 Oximetry O2 Sat by Pulse Oximetry [ Anterior Bilateral Throughout] 10/07/21 10/07/21 10/07/21 07:16 07:21 07:26 Temperature Pulse Rate 74 86 89 Respiratory Rate Blood Pressure O2 Sat by Pulse 99 99 99 Oximetry O2 Sat by Pulse Oximetry [ Anterior Bilateral Throughout] 10/07/21 07:31 Temperature Pulse Rate 100 H Respiratory Rate Blood Pressure O2 Sat by Pulse 100 Oximetry O2 Sat by Pulse Oximetry [ Anterior Bilateral Throughout] - Exam Breasts: normal Cardiovascular: Regular rate Lungs: Clear to auscultation, Normal air movement Abdomen: Present: normal appearance, soft Vulva: both: normal Uterus: Present: normal, fundal height above umbilicus FHR: category 1 Uterine Contraction Monitor Mode: External Cervical Dilatation: 1 Cervical Effacement Percentage: 50 station: -1 Uterine Contraction Frequency (min): 2-3 Uterine Contraction Duration: 60 Uterine Contraction Pattern: Regular Uterine Tone Measurement Phase: Resting Uterine Contraction Intensity: Moderate Extremities: normal Deep Tendon Reflex Grade: Normal +2 - Labs Labs: Abnormal Labs 10/04/21 10/04/21 10/04/21 16:45 16:45 16:45 MCV 72 L MCH 23 L RDW 15.4 H Plt Count 131 L Lactate Dehydrogenase 224 H Urine WBC (Auto) 11.0 H Urine Creatinine Ur Total Protein 24 Hr Urine Total Protein 10/04/21 10/04/21 10/05/21 16:45 Unknown 07:20 MCV 70 L MCH 23 L RDW 15.6 H Plt Count 123 L Lactate Dehydrogenase Urine WBC (Auto) Urine Creatinine 71.4 H Ur Total Protein 24 Hr 390.00 H Urine Total Protein 22 H 39 H 10/05/21 10/06/21 10/06/21 07:20 09:41 09:41 MCV 70 L MCH 23 L RDW 15.6 H Plt Count 123 L Lactate Dehydrogenase 220 H 193 H Urine WBC (Auto) Urine Creatinine Ur Total Protein 24 Hr Urine Total Protein Laboratory Results - last 24 hr 10/06/21 10/06/21 09:41 09:41 WBC 6.2 RBC 4.54 Hgb 10.4 Hct 31.8 MCV 70 L MCH 23 L MCHC 33 RDW 15.6 H Plt Count 123 L Creatinine 0.7 Estimated GFR > 60 Uric Acid 5.5 AST 19 ALT 18 Lactate Dehydrogenase 193 H
[2021-10-07] MEDS ORDERED: OXYTOCIN DRIP 30 UNITS/500 ML BAG IV SCH (09:00)
[2021-10-07] MEDS: PRENATAL VIT27-FE FUMARATE-FOLIC ACID VIT TAB PO SCH (09:59)
[2021-10-07] MEDS: LACTATED RINGERS 1,000 ML IV SCH (09:59)
[2021-10-07] MEDS ORDERED: fentaNYL 100 MCG/2 ML INJ ONE (12:39)
--- NOTE | 2021-10-07 12:45 | Progress Note ---
Assessment and Plan attempted to place cooks cath unsuccessful, during exam, cervix very soft - anterior to pt's left. Plan changed to AROM - ise and IUPC placed without difficulty. Moderate clear fluid noted. Pit infusing at 8mU - rn instructed to continue increasing 4x4 q30 until adequate ctx noted. all questions addressed. - Patient Problems (1) 37 weeks gestation of Current Visit: Yes Status: Acute (2) Preeclampsia Current Visit: Yes Status: Acute Qualifiers: Trimester: third trimester Qualified Code(s): O14.93 - Unspecified pre-e clampsia, third trimester Plan to address problem: Continue with IOL today Monitor b/p and urine output Start mag for b/p's in severe range in labor, will give 24hrs of mag sulfate post delivery Subjective - Subjective Date of service: 10/07/21 Principal diagnosis: IUP@37+1 wks, Preeclampsia Patient reports: loss of fluid, movement normal, contractions, no new complaints, no vaginal bleeding Objective - Vital Signs Vital Signs: Vital Signs - 12hr 10/07/21 10/07/21 10/07/21 00:45 00:50 00:55 Temperature Pulse Rate 68 78 70 Respiratory Rate Blood Pressure O2 Sat by Pulse 100 100 100 Oximetry O2 Sat by Pulse Oximetry [ Anterior Bilateral Throughout] 10/07/21 10/07/21 10/07/21 00:57 01:00 01:05 Temperature Pulse Rate 68 84 72 Respiratory Rate Blood Pressure 124/68 O2 Sat by Pulse 100 100 Oximetry O2 Sat by Pulse Oximetry [ Anterior Bilateral Throughout] 10/07/21 10/07/21 10/07/21 01:10 01:15 01:20 Temperature Pulse Rate 76 74 70 Respiratory Rate Blood Pressure O2 Sat by Pulse 99 99 99 Oximetry O2 Sat by Pulse Oximetry [ Anterior Bilateral Throughout] 10/07/21 10/07/21 10/07/21 01:25 01:27 01:30 Temperature Pulse Rate 75 78 77 Respiratory Rate Blood Pressure 112/61 O2 Sat by Pulse 99 99 Oximetry O2 Sat by Pulse Oximetry [ Anterior Bilateral Throughout] 10/07/21 10/07/21 10/07/21 01:35 01:40 01:45 Temperature Pulse Rate 86 74 93 H Respiratory Rate Blood Pressure O2 Sat by Pulse 98 98 98 Oximetry O2 Sat by Pulse Oximetry [ Anterior Bilateral Throughout] 06/10/07/21 10/07/21 01:50 01:55 01:58 Temperature Pulse Rate 79 83 82 Respiratory Rate Blood Pressure 124/68 O2 Sat by Pulse 98 98 Oximetry O2 Sat by Pulse Oximetry [ Anterior Bilateral Throughout] 10/07/21 10/07/21 10/07/21 02:00 02:05 02:10 Temperature Pulse Rate 82 82 96 H Respiratory Rate Blood Pressure O2 Sat by Pulse 99 99 98 Oximetry O2 Sat by Pulse Oximetry [ Anterior Bilateral Throughout] 10/07/21 10/07/21 10/07/21 02:15 02:20 02:25 Temperature Pulse Rate 85 105 H 94 H Respiratory Rate Blood Pressure O2 Sat by Pulse 98 98 98 Oximetry O2 Sat by Pulse Oximetry [ Anterior Bilateral Throughout] 10/07/21 10/07/21 10/07/21 02:28 02:30 02:35 Temperature Pulse Rate 97 H 81 76 Respiratory Rate Blood Pressure 129/65 O2 Sat by Pulse 99 99 Oximetry O2 Sat by Pulse Oximetry [ Anterior Bilateral Throughout] 10/07/21 10/07/21 10/07/21 02:40 02:46 02:51 Temperature Pulse Rate 85 110 H 81 Respiratory Rate Blood Pressure O2 Sat by Pulse 100 0 L 100 Oximetry O2 Sat by Pulse Oximetry [ Anterior Bilateral Throughout] 10/07/21 10/07/21 10/07/21 02:56 02:58 03:01 Temperature Pulse Rate 87 90 80 Respiratory Rate Blood Pressure 120/75 O2 Sat by Pulse 100 99 Oximetry O2 Sat by Pulse Oximetry [ Anterior Bilateral Throughout] 10/07/21 10/07/21 10/07/21 03:06 03:11 03:16 Temperature Pulse Rate 76 109 H 93 H Respiratory Rate Blood Pressure O2 Sat by Pulse 99 100 100 Oximetry O2 Sat by Pulse Oximetry [ Anterior Bilateral Throughout] 10/07/21 10/07/21 10/07/21 03:21 03:26 03:29 Temperature Pulse Rate 80 78 86 Respiratory Rate Blood Pressure 119/58 O2 Sat by Pulse 100 99 Oximetry O2 Sat by Pulse Oximetry [ Anterior Bilateral Throughout] 10/07/21 10/07/21 10/07/21 03:31 03:36 03:41 Temperature Pulse Rate 92 H 97 H 84 Respiratory Rate Blood Pressure O2 Sat by Pulse 98 98 98 Oximetry O2 Sat by Pulse Oximetry [ Anterior Bilateral Throughout] 10/07/21 10/07/21 10/07/21 03:46 03:51 03:56 Temperature Pulse Rate 87 84 95 H Respiratory Rate Blood Pressure O2 Sat by Pulse 98 98 98 Oximetry O2 Sat by Pulse Oximetry [ Anterior Bilateral Throughout] 10/07/21 10/07/21 10/07/21 03:58 03:59 04:01 Temperature Pulse Rate 82 91 H Respiratory 16 Rate Blood Pressure 119/59 O2 Sat by Pulse 97 Oximetry O2 Sat by Pulse Oximetry [ Anterior Bilateral Throughout] 10/07/21 10/07/21 10/07/21 04:06 04:11 04:16 Temperature Pulse Rate 85 74 80 Respiratory Rate Blood Pressure O2 Sat by Pulse 98 98 97 Oximetry O2 Sat by Pulse Oximetry [ Anterior Bilateral Throughout] 10/07/21 10/07/21 10/07/21 04:21 04:26 04:27 Temperature Pulse Rate 90 82 88 Respiratory Rate Blood Pressure 116/59 O2 Sat by Pulse 97 97 Oximetry O2 Sat by Pulse Oximetry [ Anterior Bilateral Throughout] 10/07/21 10/07/21 10/07/21 04:31 04:36 04:41 Temperature Pulse Rate 86 101 H 86 Respiratory Rate Blood Pressure O2 Sat by Pulse 97 97 97 Oximetry O2 Sat by Pulse Oximetry [ Anterior Bilateral Throughout] 10/07/21 10/07/21 10/07/21 04:46 04:51 04:56 Temperature Pulse Rate 88 89 99 H Respiratory Rate Blood Pressure O2 Sat by Pulse 97 97 97 Oximetry O2 Sat by Pulse Oximetry [ Anterior Bilateral Throughout] 10/07/21 10/07/21 10/07/21 04:58 05:01 05:06 Temperature Pulse Rate 88 101 H 100 H Respiratory Rate Blood Pressure 114/57 O2 Sat by Pulse 98 98 Oximetry O2 Sat by Pulse Oximetry [ Anterior Bilateral Throughout] 10/07/21 10/07/21 10/07/21 05:11 05:16 05:21 Temperature Pulse Rate 107 H 104 H 92 H Respiratory Rate Blood Pressure O2 Sat by Pulse 98 99 98 Oximetry O2 Sat by Pulse Oximetry [ Anterior Bilateral Throughout] 10/07/21 10/07/21 10/07/21 05:26 05:28 05:31 Temperature Pulse Rate 93 H 100 H 92 H Respiratory Rate Blood Pressure 126/59 O2 Sat by Pulse 98 98 Oximetry O2 Sat by Pulse Oximetry [ Anterior Bilateral Throughout] 10/07/21 10/07/21 10/07/21 05:36 05:41 05:46 Temperature Pulse Rate 88 96 H 89 Respiratory Rate Blood Pressure O2 Sat by Pulse 97 97 97 Oximetry O2 Sat by Pulse Oximetry [ Anterior Bilateral Throughout] 10/07/21 10/07/21 10/07/21 05:51 05:56 05:58 Temperature Pulse Rate 101 H 99 H 108 H Respiratory Rate Blood Pressure 122/61 O2 Sat by Pulse 97 97 Oximetry O2 Sat by Pulse Oximetry [ Anterior Bilateral Throughout] 10/07/21 10/07/21 10/07/21 06:01 06:06 06:11 Temperature Pulse Rate 99 H 106 H 100 H Respiratory Rate Blood Pressure O2 Sat by Pulse 98 97 97 Oximetry O2 Sat by Pulse Oximetry [ Anterior Bilateral Throughout] 10/07/21 10/07/21 10/07/21 06:21 06:26 06:27 Temperature Pulse Rate 94 H 92 H 90 Respiratory Rate Blood Pressure 115/70 O2 Sat by Pulse 100 99 Oximetry O2 Sat by Pulse Oximetry [ Anterior Bilateral Throughout] 10/07/21 10/07/21 10/07/21 06:31 06:36 06:41 Temperature Pulse Rate 98 H 91 H 92 H Respiratory Rate Blood Pressure O2 Sat by Pulse 99 99 100 Oximetry O2 Sat by Pulse Oximetry [ Anterior Bilateral Throughout] 10/07/21 10/07/21 10/07/21 06:46 06:51 06:56 Temperature Pulse Rate 86 87 108 H Respiratory Rate Blood Pressure O2 Sat by Pulse 99 99 100 Oximetry O2 Sat by Pulse Oximetry [ Anterior Bilateral Throughout] 10/07/21 10/07/21 10/07/21 06:58 07:01 07:06 Temperature Pulse Rate 87 98 H 92 H Respiratory Rate Blood Pressure 130/79 O2 Sat by Pulse 99 100 Oximetry O2 Sat by Pulse Oximetry [ Anterior Bilateral Throughout] 10/07/21 10/07/21 10/07/21 07:11 07:16 07:21 Temperature Pulse Rate 86 74 86 Respiratory Rate Blood Pressure O2 Sat by Pulse 100 99 99 Oximetry O2 Sat by Pulse Oximetry [ Anterior Bilateral Throughout] 10/07/21 10/07/21 10/07/21 07:26 07:30 07:31 Temperature Pulse Rate 89 100 H Respiratory Rate Blood Pressure O2 Sat by Pulse 99 100 Oximetry O2 Sat by Pulse 100 Oximetry [ Anterior Bilateral Throughout] 10/07/21 10/07/21 10/07/21 07:36 07:41 07:46 Temperature Pulse Rate 83 94 H 91 H Respiratory Rate Blood Pressure O2 Sat by Pulse 100 99 100 Oximetry O2 Sat by Pulse Oximetry [ Anterior Bilateral Throughout] 10/07/21 10/07/21 10/07/21 07:51 07:56 07:57 Temperature Pulse Rate 83 104 H 90 Respiratory Rate Blood Pressure 134/78 O2 Sat by Pulse 100 100 Oximetry O2 Sat by Pulse Oximetry [ Anterior Bilateral Throughout] 10/07/21 10/07/21 10/07/21 08:24 09:52 09:53 Temperature 99.1 F Pulse Rate 93 H 100 H Respiratory Rate Blood Pressure 132/60 O2 Sat by Pulse 99 Oximetry O2 Sat by Pulse Oximetry [ Anterior Bilateral Throughout] 10/07/21 10/07/21 10/07/21 09:57 10:02 10:07 Temperature Pulse Rate 114 H 90 93 H Respiratory Rate Blood Pressure O2 Sat by Pulse 99 99 99 Oximetry O2 Sat by Pulse Oximetry [ Anterior Bilateral Throughout] 10/07/21 10/07/21 10/07/21 10:12 10:17 10:22 Temperature Pulse Rate 91 H 105 H 91 H Respiratory Rate Blood Pressure O2 Sat by Pulse 99 99 99 Oximetry O2 Sat by Pulse Oximetry [ Anterior Bilateral Throughout] 10/07/21 10/07/21 10/07/21 10:27 10:32 10:37 Temperature Pulse Rate 93 H 85 87 Respiratory Rate Blood Pressure O2 Sat by Pulse 99 99 98 Oximetry O2 Sat by Pulse Oximetry [ Anterior Bilateral Throughout] 10/07/21 10/07/21 10/07/21 10:42 10:47 10:52 Temperature Pulse Rate 77 82 76 Respiratory Rate Blood Pressure O2 Sat by Pulse 98 98 98 Oximetry O2 Sat by Pulse Oximetry [ Anterior Bilateral Throughout] 10/07/21 10/07/21 10/07/21 10:57 11:02 11:07 Temperature Pulse Rate 75 85 80 Respiratory Rate Blood Pressure O2 Sat by Pulse 98 98 97 Oximetry O2 Sat by Pulse Oximetry [ Anterior Bilateral Throughout] 10/07/21 10/07/21 10/07/21 11:12 11:17 11:22 Temperature Pulse Rate 83 81 90 Respiratory Rate Blood Pressure O2 Sat by Pulse 97 98 97 Oximetry O2 Sat by Pulse Oximetry [ Anterior Bilateral Throughout] 10/07/21 10/07/21 10/07/21 11:27 11:32 11:37 Temperature Pulse Rate 89 87 84 Respiratory Rate Blood Pressure O2 Sat by Pulse 97 98 98 Oximetry O2 Sat by Pulse Oximetry [ Anterior Bilateral Throughout] 10/07/21 10/07/21 10/07/21 11:42 11:47 11:52 Temperature Pulse Rate 87 79 78 Respiratory Rate Blood Pressure O2 Sat by Pulse 98 98 97 Oximetry O2 Sat by Pulse Oximetry [ Anterior Bilateral Throughout] 10/07/21 10/07/21 10/07/21 11:57 12:02 12:07 Temperature Pulse Rate 101 H 71 72 Respiratory Rate Blood Pressure O2 Sat by Pulse 97 98 98 Oximetry O2 Sat by Pulse Oximetry [ Anterior Bilateral Throughout] - Exam Breasts: normal Cardiovascular: Regular rate Lungs: Normal air movement Abdomen: Present: normal appearance, soft Vulva: both: normal Uterus: Present: normal, fundal height above umbilicus FHR: category 1 Uterine Contraction Monitor Mode: Internal Cervical Dilatation: 1.5 (AROM - IUPC and ISE placed) Cervical Effacement Percentage: 70 station: -1 Uterine Contraction Frequency (min): 2 Uterine Contraction Duration: 50 Uterine Contraction Pattern: Regular Uterine Tone Measurement Phase: Resting Uterine Contraction Intensity: Mild Extremities: normal - Labs Labs: Abnormal Labs 10/04/21 10/04/21 10/04/21 16:45 16:45 16:45 MCV 72 L MCH 23 L RDW 15.4 H Plt Count 131 L Lactate Dehydrogenase 224 H Urine WBC (Auto) 11.0 H Urine Creatinine Ur Total Protein 24 Hr Urine Total Protein 10/04/21 10/04/21 10/05/21 16:45 Unknown 07:20 MCV 70 L MCH 23 L RDW 15.6 H Plt Count 123 L Lactate Dehydrogenase Urine WBC (Auto) Urine Creatinine 71.4 H Ur Total Protein 24 Hr 390.00 H Urine Total Protein 22 H 39 H 10/05/21 10/06/21 10/06/21 07:20 09:41 09:41 MCV 70 L MCH 23 L RDW 15.6 H Plt Count 123 L Lactate Dehydrogenase 220 H 193 H Urine WBC (Auto) Urine Creatinine Ur Total Protein 24 Hr Urine Total Protein
[2021-10-07] MEDS ORDERED: fentaNYL 100 MCG/2 ML INJ IV ONE (13:00)
--- NOTE | 2021-10-07 14:41 | Event Note ---
Date: 10/07/21 Called RN to check on pitocin infusion and titration; ERNST Reed states pitocin is infusing at 16mU but not yet documented. reviewed tracing from remote location - Ctx tracing with IUPC, MVUs approx 140. Asked RN to increase pitocin per order for MVUs 180-120. Pt may have epidural PRN.
--- NOTE | 2021-10-07 17:02 | Event Note ---
Date: 10/07/21 Came to see patient, pt cying with ctx, requesting epidural. Pitocin infusing @ 12mU. ERNST Reed made aware, IVF bolus started for epidural.
[2021-10-07] MEDS ORDERED: ePHEDrine SULFATE 50 MG/1 ML INJ ONE (17:10)
[2021-10-07] MEDS ORDERED: NALOXONE 0.4 MG/1 ML INJ IV PRN (18:07)
[2021-10-07] MEDS ORDERED: ePHEDrine SULFATE 50 MG/1 ML INJ IV PRN (18:07)
--- NOTE | 2021-10-07 18:11 | Anesthesia Consultation ---
Anesthesia Consult and Med Hx Date of service: 10/07/21 - Airway Anesthetic Teeth Evaluation: Good ROM Head & Neck: Adequate Mental/Hyoid Distance: Adequate Mallampati Class: Class II Intubation Access Assessment: Probably Good - Pulmonary Exam CTA: Yes - Cardiac Exam Cardiac Exam: RRR - Pre-Operative Health Status ASA Pre-Surgery Classification: ASA3 Proposed Anesthetic Plan: Epidural - Pulmonary Hx Smoking: No Hx Asthma: No Hx Respiratory Symptoms: No - Cardiovascular System Hx Hypertension: Yes (THIS PRGNANCY) - Central Nervous System Hx Seizures: No Hx Psychiatric Problems: No - Endocrine Hx Renal Disease: No Hx Hypothyroidism: No Hx Hyperthyroidism: No - Hematic Hx Sickle Cell Disease: No - Other Systems Hx Alcohol Use: No Hx Substance Use: Yes
--- NOTE | 2021-10-07 18:13 | Progress Note ---
Assessment and Plan patient comfortable s/p epidural placement, SVE now 380/-1, head well applied, pelvis feels adequate for size of baby. Encouraged rest and to call if she begins to feel pain or pressure. Dr. Mcclellan and MARCELINO Uribe updated on patient's status. - Patient Problems (1) 37 weeks gestation of Current Visit: Yes Status: Acute (2) Preeclampsia Current Visit: Yes Status: Acute Qualifiers: Trimester: third trimester Qualified Code(s): O14.93 - Unspecified pre- eclampsia, third trimester Plan to address problem: Continue with IOL today Monitor b/p and urine output Start mag for b/p's in severe range in labor, will give 24hrs of mag sulfate post delivery Subjective - Subjective Date of service: 10/07/21 Principal diagnosis: IUP@37+1 wks, Preeclampsia Patient reports: loss of fluid, no new complaints (comfortable s/p epidural placement) Objective - Vital Signs Vital Signs: Vital Signs - 12hr 10/07/21 10/07/21 10/07/21 06:11 06:21 06:26 Temperature Pulse Rate 100 H 94 H 92 H Blood Pressure O2 Sat by Pulse 97 100 99 Oximetry O2 Sat by Pulse Oximetry [ Anterior Bilateral Throughout] 10/07/21 10/07/21 10/07/21 06:27 06:31 06:36 Temperature Pulse Rate 90 98 H 91 H Blood Pressure 115/70 O2 Sat by Pulse 99 99 Oximetry O2 Sat by Pulse Oximetry [ Anterior Bilateral Throughout] 10/07/21 10/07/21 10/07/21 06:41 06:46 06:51 Temperature Pulse Rate 92 H 86 87 Blood Pressure O2 Sat by Pulse 100 99 99 Oximetry O2 Sat by Pulse Oximetry [ Anterior Bilateral Throughout] 10/07/21 10/07/21 10/07/21 06:56 06:58 07:01 Temperature Pulse Rate 108 H 87 98 H Blood Pressure 130/79 O2 Sat by Pulse 100 99 Oximetry O2 Sat by Pulse Oximetry [ Anterior Bilateral Throughout] 10/07/21 10/07/21 10/07/21 07:06 07:11 07:16 Temperature Pulse Rate 92 H 86 74 Blood Pressure O2 Sat by Pulse 100 100 99 Oximetry O2 Sat by Pulse Oximetry [ Anterior Bilateral Throughout] 10/07/21 10/07/21 10/07/21 07:21 07:26 07:30 Temperature Pulse Rate 86 89 Blood Pressure O2 Sat by Pulse 99 99 Oximetry O2 Sat by Pulse 100 Oximetry [ Anterior Bilateral Throughout] 10/07/21 10/07/21 10/07/21 07:31 07:36 07:41 Temperature Pulse Rate 100 H 83 94 H Blood Pressure O2 Sat by Pulse 100 100 99 Oximetry O2 Sat by Pulse Oximetry [ Anterior Bilateral Throughout] 10/07/21 10/07/21 10/07/21 07:46 07:51 07:56 Temperature Pulse Rate 91 H 83 104 H Blood Pressure O2 Sat by Pulse 100 100 100 Oximetry O2 Sat by Pulse Oximetry [ Anterior Bilateral Throughout] 10/07/21 10/07/21 10/07/21 07:57 08:24 09:52 Temperature 99.1 F Pulse Rate 90 93 H Blood Pressure 134/78 O2 Sat by Pulse 99 Oximetry O2 Sat by Pulse Oximetry [ Anterior Bilateral Throughout] 10/07/21 10/07/21 10/07/21 09:53 09:57 10:02 Temperature Pulse Rate 100 H 114 H 90 Blood Pressure 132/60 O2 Sat by Pulse 99 99 Oximetry O2 Sat by Pulse Oximetry [ Anterior Bilateral Throughout] 10/07/21 10/07/21 10/07/21 10:07 10:12 10:17 Temperature Pulse Rate 93 H 91 H 105 H Blood Pressure O2 Sat by Pulse 99 99 99 Oximetry O2 Sat by Pulse Oximetry [ Anterior Bilateral Throughout] 10/07/21 10/07/21 10/07/21 10:22 10:27 10:32 Temperature Pulse Rate 91 H 93 H 85 Blood Pressure O2 Sat by Pulse 99 99 99 Oximetry O2 Sat by Pulse Oximetry [ Anterior Bilateral Throughout] 10/07/21 10/07/21 10/07/21 10:37 10:42 10:47 Temperature Pulse Rate 87 77 82 Blood Pressure O2 Sat by Pulse 98 98 98 Oximetry O2 Sat by Pulse Oximetry [ Anterior Bilateral Throughout] 10/07/21 10/07/21 10/07/21 10:52 10:57 11:02 Temperature Pulse Rate 76 75 85 Blood Pressure O2 Sat by Pulse 98 98 98 Oximetry O2 Sat by Pulse Oximetry [ Anterior Bilateral Throughout] 10/07/21 10/07/21 10/07/21 11:07 11:12 11:17 Temperature Pulse Rate 80 83 81 Blood Pressure O2 Sat by Pulse 97 97 98 Oximetry O2 Sat by Pulse Oximetry [ Anterior Bilateral Throughout] 10/07/21 10/07/21 10/07/21 11:22 11:27 11:32 Temperature Pulse Rate 90 89 87 Blood Pressure O2 Sat by Pulse 97 97 98 Oximetry O2 Sat by Pulse Oximetry [ Anterior Bilateral Throughout] 10/07/21 10/07/21 10/07/21 11:37 11:42 11:47 Temperature Pulse Rate 84 87 79 Blood Pressure O2 Sat by Pulse 98 98 98 Oximetry O2 Sat by Pulse Oximetry [ Anterior Bilateral Throughout] 10/07/21 10/07/21 10/07/21 11:52 11:57 12:02 Temperature Pulse Rate 78 101 H 71 Blood Pressure O2 Sat by Pulse 97 97 98 Oximetry O2 Sat by Pulse Oximetry [ Anterior Bilateral Throughout] 10/07/21 10/07/21 10/07/21 12:07 17:19 17:24 Temperature Pulse Rate 72 122 H 98 H Blood Pressure O2 Sat by Pulse 98 97 99 Oximetry O2 Sat by Pulse Oximetry [ Anterior Bilateral Throughout] 10/07/21 10/07/21 10/07/21 17:29 17:34 17:39 Temperature Pulse Rate 100 H 96 H 100 H Blood Pressure O2 Sat by Pulse 98 100 100 Oximetry O2 Sat by Pulse Oximetry [ Anterior Bilateral Throughout] 10/07/21 10/07/21 10/07/21 17:44 17:49 17:53 Temperature Pulse Rate 102 H 102 H 95 H Blood Pressure 151/73 O2 Sat by Pulse 100 100 Oximetry O2 Sat by Pulse Oximetry [ Anterior Bilateral Throughout] 10/07/21 10/07/21 10/07/21 17:54 17:56 17:58 Temperature Pulse Rate 97 H 102 H 102 H Blood Pressure 156/83 140/73 143/83 O2 Sat by Pulse 100 Oximetry O2 Sat by Pulse Oximetry [ Anterior Bilateral Throughout] 10/07/21 10/07/21 10/07/21 17:59 18:00 18:02 Temperature Pulse Rate 93 H 91 H 91 H Blood Pressure 146/79 132/69 O2 Sat by Pulse 99 Oximetry O2 Sat by Pulse Oximetry [ Anterior Bilateral Throughout] 10/07/21 18:04 Temperature Pulse Rate 90 Blood Pressure O2 Sat by Pulse 100 Oximetry O2 Sat by Pulse Oximetry [ Anterior Bilateral Throughout] - Exam Cardiovascular: Regular rate Lungs: Normal air movement Abdomen: Present: normal appearance, soft Vulva: both: normal FHR: category 1 Uterine Contraction Monitor Mode: Internal Cervical Dilatation: 3 Cervical Effacement Percentage: 80 station: -1 Uterine Contraction Frequency (min): 2 Uterine Contraction Duration: 60 Uterine Contraction Pattern: Regular Uterine Tone Measurement Phase: Contraction Uterine Contraction Intensity: Moderate Extremities: normal Deep Tendon Reflex Grade: Normal +2 - Labs Labs: Abnormal Labs 10/04/21 10/04/21 10/04/21 16:45 16:45 16:45 MCV 72 L MCH 23 L RDW 15.4 H Plt Count 131 L Lactate Dehydrogenase 224 H Urine WBC (Auto) 11.0 H Urine Creatinine Ur Total Protein 24 Hr Urine Total Protein 10/04/21 10/04/21 10/05/21 16:45 Unknown 07:20 MCV 70 L MCH 23 L RDW 15.6 H Plt Count 123 L Lactate Dehydrogenase Urine WBC (Auto) Urine Creatinine 71.4 H Ur Total Protein 24 Hr 390.00 H Urine Total Protein 22 H 39 H 10/05/21 10/06/21 10/06/21 07:20 09:41 09:41 MCV 70 L MCH 23 L RDW 15.6 H Plt Count 123 L Lactate Dehydrogenase 220 H 193 H Urine WBC (Auto) Urine Creatinine Ur Total Protein 24 Hr Urine Total Protein
--- NOTE | 2021-10-07 18:14 | Progress Note ---
Labor Epidural - Labor Epidural Start Time: 17:25 Stop Time: 17:51 Performed by:: DANNA JASSO Procedure: Patient is requesting epidural for labor pain. H&P and labs reviewed. Procedure explained, questions answered, consent obtained. Patient placed in sitting position with monitors applied. Timeout performed immediately before start of procedure. Prep/drape in usual sterile fashion. Skin localized 3 mL 1% lidocaine at L[3]-L[4] x 1 attempt and L2-3 x 1 attempt interspace. 17-gauge Touhy epidural needle advanced to DARIO with saline at [7] cm. No blood/CSF noted via epidural needle. Epidural catheter advanced to [12] cm. Negative aspiration for blood and CSF via catheter, negative response to test dose 3 ml 1.5% lidocaine w/ Epi. Sterile dressing applied followed by tape reinforcement. Patient tolerated procedure well. No immediate complications noted.
[2021-10-07] MEDS ORDERED: fentaNYL-BUPIV 2 MCG/ML-0.125% 200 MCG/100 ML BAG EPIDURAL SCH (19:00)
--- NOTE | 2021-10-07 19:53 | Event Note ---
Date: 10/07/21 Pt comfortable with epidural. Feeling some intermittent vaginal pressure. Last exam at 1800 was 380/-1. Pt repositioned in right lateral position. Will reassess cervix in about an hour.
--- NOTE | 2021-10-07 21:01 | Progress Note ---
Assessment and Plan A: 21 y.,o. @ 37.1 wks, IOL d/t Pre Eclampsia. - Patient Problems (1) 36 to 37 weeks gestation of Current Visit: Yes Status: Acute Plan to address problem: Continue to monitor status through EFM. (2) Preeclampsia Current Visit: Yes Status: Acute Qualifiers: Trimester: third trimester Qualified Code(s): O14.93 - Unspecified pre- eclampsia, third trimester Plan to address problem: Continue with IOL. Increase Pitocin per protocol. Will reassess cervix in 2 hours (11pm). Will initiate magnesium infusion after delivery. Continue to monitor blood pressures. Continue to monitor for worsening s/sx of Pre Eclampsia. Subjective - Subjective Date of service: 10/07/21 Principal diagnosis: IUP@37+1 wks, Preeclampsia Patient reports: loss of fluid, no new complaints (comfortable s/p epidural placement) Objective - Vital Signs Vital Signs: Vital Signs - 12hr 10/07/21 10/07/21 10/07/21 09:52 09:53 09:57 Temperature Pulse Rate 93 H 100 H 114 H Blood Pressure 132/60 O2 Sat by Pulse 99 99 Oximetry O2 Sat by Pulse Oximetry [ Anterior Bilateral Throughout] 10/07/21 10/07/21 10/07/21 10:02 10:07 10:12 Temperature Pulse Rate 90 93 H 91 H Blood Pressure O2 Sat by Pulse 99 99 99 Oximetry O2 Sat by Pulse Oximetry [ Anterior Bilateral Throughout] 10/07/21 10/07/21 10/07/21 10:17 10:22 10:27 Temperature Pulse Rate 105 H 91 H 93 H Blood Pressure O2 Sat by Pulse 99 99 99 Oximetry O2 Sat by Pulse Oximetry [ Anterior Bilateral Throughout] 10/07/21 10/07/21 10/07/21 10:32 10:37 10:42 Temperature Pulse Rate 85 87 77 Blood Pressure O2 Sat by Pulse 99 98 98 Oximetry O2 Sat by Pulse Oximetry [ Anterior Bilateral Throughout] 10/07/21 10/07/21 10/07/21 10:47 10:52 10:57 Temperature Pulse Rate 82 76 75 Blood Pressure O2 Sat by Pulse 98 98 98 Oximetry O2 Sat by Pulse Oximetry [ Anterior Bilateral Throughout] 10/07/21 10/07/21 10/07/21 11:02 11:07 11:12 Temperature Pulse Rate 85 80 83 Blood Pressure O2 Sat by Pulse 98 97 97 Oximetry O2 Sat by Pulse Oximetry [ Anterior Bilateral Throughout] 10/07/21 10/07/21 10/07/21 11:17 11:22 11:27 Temperature Pulse Rate 81 90 89 Blood Pressure O2 Sat by Pulse 98 97 97 Oximetry O2 Sat by Pulse Oximetry [ Anterior Bilateral Throughout] 10/07/21 10/07/21 10/07/21 11:32 11:37 11:42 Temperature Pulse Rate 87 84 87 Blood Pressure O2 Sat by Pulse 98 98 98 Oximetry O2 Sat by Pulse Oximetry [ Anterior Bilateral Throughout] 10/07/21 10/07/21 10/07/21 11:47 11:52 11:57 Temperature Pulse Rate 79 78 101 H Blood Pressure O2 Sat by Pulse 98 97 97 Oximetry O2 Sat by Pulse Oximetry [ Anterior Bilateral Throughout] 10/07/21 10/07/21 10/07/21 12:02 12:07 17:19 Temperature Pulse Rate 71 72 122 H Blood Pressure O2 Sat by Pulse 98 98 97 Oximetry O2 Sat by Pulse Oximetry [ Anterior Bilateral Throughout] 10/07/21 10/07/21 10/07/21 17:24 17:29 17:34 Temperature Pulse Rate 98 H 100 H 96 H Blood Pressure O2 Sat by Pulse 99 98 100 Oximetry O2 Sat by Pulse Oximetry [ Anterior Bilateral Throughout] 10/07/21 10/07/21 10/07/21 17:39 17:44 17:49 Temperature Pulse Rate 100 H 102 H 102 H Blood Pressure O2 Sat by Pulse 100 100 100 Oximetry O2 Sat by Pulse Oximetry [ Anterior Bilateral Throughout] 10/07/21 10/07/21 10/07/21 17:53 17:54 17:56 Temperature Pulse Rate 95 H 97 H 102 H Blood Pressure 151/73 156/83 140/73 O2 Sat by Pulse 100 Oximetry O2 Sat by Pulse Oximetry [ Anterior Bilateral Throughout] 10/07/21 10/07/21 10/07/21 17:58 17:59 18:00 Temperature Pulse Rate 102 H 93 H 91 H Blood Pressure 143/83 146/79 O2 Sat by Pulse 99 Oximetry O2 Sat by Pulse Oximetry [ Anterior Bilateral Throughout] 10/07/21 10/07/21 10/07/21 18:02 18:04 18:09 Temperature Pulse Rate 91 H 90 91 H Blood Pressure 132/69 O2 Sat by Pulse 100 100 Oximetry O2 Sat by Pulse Oximetry [ Anterior Bilateral Throughout] 10/07/21 10/07/21 10/07/21 18:14 18:17 18:19 Temperature Pulse Rate 98 H 86 93 H Blood Pressure 130/67 O2 Sat by Pulse 100 99 Oximetry O2 Sat by Pulse Oximetry [ Anterior Bilateral Throughout] 10/07/21 10/07/21 10/07/21 18:24 18:29 18:32 Temperature Pulse Rate 100 H 94 H 100 H Blood Pressure 122/65 O2 Sat by Pulse 99 98 Oximetry O2 Sat by Pulse Oximetry [ Anterior Bilateral Throughout] 10/07/21 10/07/21 10/07/21 18:34 18:39 18:44 Temperature Pulse Rate 90 97 H 94 H Blood Pressure O2 Sat by Pulse 99 98 99 Oximetry O2 Sat by Pulse Oximetry [ Anterior Bilateral Throughout] 10/07/21 10/07/21 10/07/21 18:47 18:49 18:54 Temperature Pulse Rate 94 H 99 H 95 H Blood Pressure 131/67 O2 Sat by Pulse 100 100 Oximetry O2 Sat by Pulse Oximetry [ Anterior Bilateral Throughout] 10/07/21 10/07/21 10/07/21 18:59 19:02 19:03 Temperature 98.6 F Pulse Rate 102 H 91 H Blood Pressure 133/81 O2 Sat by Pulse 100 Oximetry O2 Sat by Pulse 100 Oximetry [ Anterior Bilateral Throughout] 10/07/21 10/07/21 10/07/21 19:04 19:09 19:14 Temperature Pulse Rate 93 H 92 H 86 Blood Pressure O2 Sat by Pulse 100 100 100 Oximetry O2 Sat by Pulse Oximetry [ Anterior Bilateral Throughout] 10/07/21 10/07/21 10/07/21 19:17 19:19 19:24 Temperature Pulse Rate 86 83 83 Blood Pressure 123/64 O2 Sat by Pulse 99 100 Oximetry O2 Sat by Pulse Oximetry [ Anterior Bilateral Throughout] 10/07/21 10/07/21 10/07/21 19:29 19:32 19:34 Temperature Pulse Rate 77 85 91 H Blood Pressure 110/53 O2 Sat by Pulse 98 98 Oximetry O2 Sat by Pulse Oximetry [ Anterior Bilateral Throughout] 10/07/21 10/07/21 10/07/21 19:36 19:39 19:44 Temperature Pulse Rate 81 82 97 H Blood Pressure O2 Sat by Pulse 93 99 98 Oximetry O2 Sat by Pulse Oximetry [ Anterior Bilateral Throughout] 10/07/21 10/07/21 10/07/21 19:49 19:54 19:59 Temperature Pulse Rate 84 85 85 Blood Pressure 135/73 O2 Sat by Pulse 99 98 98 Oximetry O2 Sat by Pulse Oximetry [ Anterior Bilateral Throughout] 10/07/21 10/07/21 10/07/21 20:02 20:04 20:09 Temperature Pulse Rate 96 H 84 84 Blood Pressure 137/73 O2 Sat by Pulse 98 99 Oximetry O2 Sat by Pulse Oximetry [ Anterior Bilateral Throughout] 10/07/21 10/07/21 10/07/21 20:14 20:18 20:19 Temperature Pulse Rate 82 79 86 Blood Pressure 120/64 O2 Sat by Pulse 98 99 Oximetry O2 Sat by Pulse Oximetry [ Anterior Bilateral Throughout] 10/07/21 10/07/21 10/07/21 20:24 20:29 20:32 Temperature Pulse Rate 77 104 H 89 Blood Pressure 125/66 O2 Sat by Pulse 98 96 Oximetry O2 Sat by Pulse Oximetry [ Anterior Bilateral Throughout] 10/07/21 10/07/21 10/07/21 20:34 20:39 20:44 Temperature Pulse Rate 108 H 96 H 103 H Blood Pressure O2 Sat by Pulse 99 100 100 Oximetry O2 Sat by Pulse Oximetry [ Anterior Bilateral Throughout] 10/07/21 10/07/21 10/07/21 20:49 20:50 20:54 Temperature Pulse Rate 116 H 102 H 91 H Blood Pressure 110/69 O2 Sat by Pulse 95 100 Oximetry O2 Sat by Pulse Oximetry [ Anterior Bilateral Throughout] 10/07/21 20:58 Temperature Pulse Rate 88 Blood Pressure O2 Sat by Pulse 90 Oximetry O2 Sat by Pulse Oximetry [ Anterior Bilateral Throughout] - Exam Narrative Exam: Denies MACK, blurred vision, spots before her eyes, chest pain, shortness of breath, and upper abdominal pain. Current blood pressure range: 108-130's/60-80's. Cardiovascular: Regular rate Lungs: Normal air movement FHR: category 1 Uterine Contraction Monitor Mode: External Cervical Dilatation: 3.5 (Per RN taking care of patient. ) Cervical Effacement Percentage: 80 station: -1 Uterine Contraction Pattern: Regular Uterine Tone Measurement Phase: Resting Uterine Contraction Intensity: Moderate Extremities: normal Deep Tendon Reflex Grade: Normal +2 - Labs Labs: Abnormal Labs 10/04/21 10/04/21 10/04/21 16:45 16:45 16:45 MCV 72 L MCH 23 L RDW 15.4 H Plt Count 131 L Lactate Dehydrogenase 224 H Urine WBC (Auto) 11.0 H Urine Creatinine Ur Total Protein 24 Hr Urine Total Protein 10/04/21 10/04/21 10/05/21 16:45 Unknown 07:20 MCV 70 L MCH 23 L RDW 15.6 H Plt Count 123 L Lactate Dehydrogenase Urine WBC (Auto) Urine Creatinine 71.4 H Ur Total Protein 24 Hr 390.00 H Urine Total Protein 22 H 39 H 10/05/21 10/06/21 10/06/21 07:20 09:41 09:41 MCV 70 L MCH 23 L RDW 15.6 H Plt Count 123 L Lactate Dehydrogenase 220 H 193 H Urine WBC (Auto) Urine Creatinine Ur Total Protein 24 Hr Urine Total Protein
[2021-10-07] MEDS ORDERED: CALCIUM CARBONATE 500 MG TAB CHEW PO ONE (21:49)
--- NOTE | 2021-10-07 22:29 | Event Note ---
Date: 10/07/21 Recurrent variables noted, moderate variability. Endorsing intermittent rectal pressure. SVE: /0. Pt repositioned from right lateral lying to [employer].
[2021-10-07] MEDS ORDERED: MINERAL OIL 30 ML ORAL LIQD ONE (22:59)
--- NOTE | 2021-10-08 00:34 | Procedure Note ---
OB Delivery Note - Delivery Date of Delivery: 10/08/21 Recruiting Manager: SUNSHINE CONTEH (Kamala Gutierrez [facility]) Estimated blood loss: other (150mL) - Vaginal Delivery position: OA Intrapartum events: preeclampsia Delivery induction: cervidil Delivery augmentation: rupture of membranes, pitocin Delivery monitor: external FHT, external uterine, internal FHT, internal uterine Route of delivery: Delivery placenta: spontaneous Delivery cord: nuchal cord (nuchal cord around feet), 3 umbilical vessels Episiotomy: none Delivery laceration: none Anesthesia: epidural Delivery comments: Called by primary RN, pt endorsing continuous urge to push. c/c/+3. Slow x3 min, of male infant, 3vc doubly clamped and cut at 40 seconds of life by FOB. to [facility] for awaiting pediatric team. APGARS 8/9, 5 lbs 13 oz. pitocin initiated. QBL 150mL. No lacerations. Fundus firm, midline, 1 below umbilicus, scant bleeding following uterine expression. Counts performed x2 and correct x2 with primary RN. Maternal dyad left in care of ROWAN and primary nurses @0030. Garnett catheter placed, magnesium to be initiated. - A at 1 minute: 8 at 5 minutes: 9 (Geremias, 5 lbs 13 oz) Infant Gender: Male
[2021-10-08] MEDS ORDERED: MAGNESIUM SULFATE 4 GM/100 ML BAG IV ONE (00:40)
[2021-10-08] MEDS ORDERED: CALCIUM GLUCONATE 1000 MG/10 ML INJ IV ONE (00:40)
[2021-10-08] MEDS ORDERED: LACTATED RINGERS 1,000 ML IV SCH ×2 (00:45→17:12)
[2021-10-08] MEDS ORDERED: MAGNESIUM SULFATE 40GM/1000ML 40 GM/1,000 ML BAG IV SCH (01:00)
[2021-10-08] MEDS: ACETAMINOPHEN 325 MG TAB PO PRN (04:06)
[2021-10-08] MEDS: LACTATED RINGERS 1,000 ML IV SCH (06:40)
[2021-10-08] MEDS ORDERED: WITCH HAZEL/ GLYCERIN PAD TP PRN (09:34)
[2021-10-08] MEDS ORDERED: PROMETHAZINE 25 MG TAB PO PRN (09:34)
[2021-10-08] MEDS ORDERED: ACETAMINOPHEN 500 MG TAB PO PRN (09:34)
[2021-10-08] MEDS ORDERED: LANOLIN/ZINC/DIMETHICONE (LANSINOH) 7 GM TP PRN (09:34)
[2021-10-08] MEDS ORDERED: PROMETHAZINE 25 MG RECT SUPP PR PRN (09:34)
[2021-10-08] MEDS ORDERED: diphenhydrAMINE 25 MG CAP PO PRN (09:34)
[2021-10-08] MEDS ORDERED: ONDANSETRON 4 MG/2 ML INJ IV PRN (09:34)
[2021-10-08] MEDS ORDERED: BENZOCAINE/MENTHOL 20/0.5% TOP SPRAY 56 GM TP PRN (09:34)
[2021-10-08] MEDS ORDERED: oxyCODONE /ACETAMINOPHEN 5-325MG TAB PO PRN (09:34)
[2021-10-08] MEDS ORDERED: MAGNESIUM HYDROXIDE (MOM) ORAL LIQD UDC PO PRN (09:34)
[2021-10-08] MEDS ORDERED: miSOPROStol 100 MCG TAB PR PRN (09:34)
[2021-10-08] MEDS: PRENATAL VIT27-FE FUMARATE-FOLIC ACID VIT TAB PO SCH (10:18)
[2021-10-08] MEDS: SENNOSIDES/DOCUSATE SODIUM 8.6/50 MG TAB PO SCH ×2 (10:18→22:42)
[2021-10-08] MEDS: IBUPROFEN 800 MG TAB PO SCH ×2 (10:19→18:28)
[2021-10-08] MEDS: DOCUSATE SODIUM 100 MG CAP PO SCH ×2 (10:20→22:42)
--- NOTE | 2021-10-08 12:53 | Progress Note ---
Assessment and Plan Patient doing well ~12hrs post . Lochia scant, fundus firm. post delivery H&H ordered for this afternoon. denies MACK, visual changes or epigastric pain. VSSAF - b/p's trending down this morning. 2 elevations noted since delivery >130/80's. at BS with FOC - bottle feeding. P: Continue labetalol 200mg PO BID Mag sulfate x 24hrs post delivery, d/c @ midnight and transfer to [facility] Strict I&O close monitoring of b/p and for s/s of worsening pre-e - Patient Problems (1) Preeclampsia Current Visit: Yes Status: Acute Qualifiers: Trimester: third trimester Qualified Code(s): O14.93 - Unspecified pre- eclampsia, third trimester (2) (normal spontaneous vaginal delivery) Current Visit: Yes Status: Acute Plan to address problem: Continue pathway Subjective - Subjective Date of service: 10/08/21 Principal diagnosis: day #1 s/p ; mild-pre-e Patient reports: appetite normal, pain well controlled, no nauseated : doing well, bottle feeding Objective - Vital Signs Latest vital signs: Vital Signs Temp Pulse Resp BP Pulse Ox Pulse Ox 10/08/21 12:09 78 102/53 10/08/21 11:42 78 115/55 10/08/21 10:25 109 H 99 10/08/21 10:20 90 99 10/08/21 10:17 93 H 131/78 10/08/21 10:15 85 99 10/08/21 10:10 103 H 98 10/08/21 10:09 96 H 131/78 10/08/21 10:05 98 H 98 10/08/21 10:00 86 98 10/08/21 09:55 83 99 10/08/21 09:50 93 H 98 10/08/21 09:45 90 99 10/08/21 09:40 99 H 98 10/08/21 09:35 96 H 99 10/08/21 09:30 106 H 98 10/08/21 09:25 103 H 99 10/08/21 09:20 90 99 10/08/21 09:15 84 99 10/08/21 09:10 92 H 100 10/08/21 09:09 76 130/73 10/08/21 09:05 85 99 10/08/21 09:03 78 129/75 10/08/21 09:02 98.2 F 18 99 99 10/08/21 09:00 95 H 99 10/08/21 08:55 108 H 98 10/08/21 08:50 79 97 10/08/21 08:45 79 98 10/08/21 08:40 84 98 10/08/21 08:35 76 97 10/08/21 08:30 76 98 10/08/21 08:25 73 98 10/08/21 08:20 92 H 98 10/08/21 08:15 76 98 10/08/21 08:10 79 97 10/08/21 08:09 85 130/71 10/08/21 08:05 78 98 10/08/21 08:00 78 98 10/08/21 07:55 100 H 99 10/08/21 07:50 105 H 99 10/08/21 07:45 83 98 10/08/21 07:40 80 98 10/08/21 07:35 79 98 10/08/21 07:30 77 98 10/08/21 07:25 74 98 10/08/21 07:20 77 98 10/08/21 07:15 75 98 10/08/21 07:10 82 98 10/08/21 07:09 90 132/72 10/08/21 07:05 85 99 10/08/21 07:00 85 98 10/08/21 06:55 94 H 98 10/08/21 06:50 105 H 99 10/08/21 06:45 97 H 98 10/08/21 06:40 87 98 10/08/21 06:35 106 H 98 10/08/21 06:30 101 H 99 10/08/21 06:25 87 98 10/08/21 06:20 98 H 98 10/08/21 06:15 93 H 98 10/08/21 06:10 95 H 99 10/08/21 06:09 87 136/75 10/08/21 06:05 94 H 99 10/08/21 05:59 98.7 F 10/08/21 05:09 79 129/73 10/08/21 04:09 96 H 137/99 10/08/21 03:54 100 H 99 10/08/21 03:49 89 99 10/08/21 03:44 92 H 99 10/08/21 03:39 89 99 06 03:34 85 99 10/08/21 03:29 101 H 99 10/08/21 03:24 112 H 99 10/08/21 03:19 111 H 99 10/08/21 03:14 85 99 10/08/21 03:09 102 H 136/85 98 10/08/21 03:04 86 99 10/08/21 02:59 83 99 10/08/21 02:54 88 98 10/08/21 02:49 84 99 10/08/21 02:44 84 98 10/08/21 02:39 84 99 10/08/21 02:34 89 100 10/08/21 02:29 92 H 99 10/08/21 02:24 90 99 10/08/21 02:19 112 H 99 10/08/21 02:15 97.6 F 10/08/21 02:14 87 98 10/08/21 02:09 90 99 10/08/21 02:03 89 149/102 10/08/21 02:00 88 99 10/08/21 01:55 96 H 100 10/08/21 01:50 100 H 99 10/08/21 01:47 99 H 135/81 10/08/21 01:45 111 H 100 10/08/21 01:40 89 100 10/08/21 01:35 101 H 100 10/08/21 01:32 105 H 136/81 10/08/21 01:30 124 H 100 10/08/21 01:25 115 H 100 10/08/21 01:20 96 H 100 10/08/21 01:17 96 H 139/83 10/08/21 01:15 102 H 100 10/08/21 01:10 104 H 99 10/08/21 01:05 111 H 100 10/08/21 01:03 105 H 143/85 10/08/21 01:00 122 H 100 10/08/21 00:55 126 H 99 10/08/21 00:50 121 H 98 10/08/21 00:47 116 H 169/92 10/08/21 00:45 125 H 99 10/08/21 00:40 120 H 99 10/08/21 00:35 126 H 98 10/08/21 00:32 117 H 153/87 0618/22 00:30 99.6 F 109 H 100 10/08/21 00:25 128 H 99 10/08/21 00:20 111 H 100 10/08/21 00:18 118 H 162/78 10/08/21 00:15 120 H 100 10/08/21 00:10 148 H 100 10/08/21 00:05 131 H 99 10/08/21 00:03 166 H 180/84 10/08/21 00:00 123 H 99 10/07/21 23:55 123 H 99 10/07/21 23:50 143 H 99 10/07/21 23:47 122 H 149/93 10/07/21 23:45 142 H 99 10/07/21 23:40 141 H 100 10/07/21 23:35 130 H 99 10/07/21 23:34 131 H 152/93 10/07/21 23:30 107 H 100 10/07/21 23:25 110 H 99 10/07/21 23:23 118 H 86 10/07/21 23:20 112 H 99 10/07/21 23:17 106 H 135/70 10/07/21 23:15 116 H 100 10/07/21 23:13 110 H 87 10/07/21 23:10 111 H 99 10/07/21 23:05 104 H 100 10/07/21 23:02 107 H 131/77 10/07/21 23:00 119 H 100 10/07/21 22:55 121 H 100 10/07/21 22:50 109 H 100 10/07/21 22:48 100 H 143/84 10/07/21 22:45 104 H 100 10/07/21 22:40 107 H 100 10/07/21 22:35 97 H 99 10/07/21 22:33 109 H 157/91 10/07/21 22:30 106 H 99 10/07/21 22:25 108 H 100 10/07/21 22:20 119 H 100 10/07/21 22:17 116 H 136/78 10/07/21 22:15 123 H 100 10/07/21 22:10 103 H 100 10/07/21 22:05 92 H 100 10/07/21 22:03 90 133/66 10/07/21 22:00 90 100 10/07/21 21:55 88 100 10/07/21 21:50 81 100 10/07/21 21:47 82 127/69 10/07/21 21:45 82 100 10/07/21 21:40 78 100 10/07/21 21:35 86 100 10/07/21 21:32 76 126/69 10/07/21 21:30 86 100 10/07/21 21:25 93 H 100 10/07/21 21:20 82 99 10/07/21 21:17 91 H 114/65 10/07/21 21:15 83 100 10/07/21 21:10 85 100 10/07/21 21:05 96 H 99 10/07/21 21:02 84 108/62 10/07/21 21:00 97 H 100 10/07/21 20:58 88 90 10/07/21 20:54 91 H 100 10/07/21 20:50 102 H 110/69 10/07/21 20:49 116 H 95 10/07/21 20:44 103 H 100 10/07/21 20:39 96 H 100 10/07/21 20:34 108 H 99 10/07/21 20:32 89 125/66 10/07/21 20:29 104 H 96 10/07/21 20:24 77 98 10/07/21 20:19 86 99 10/07/21 20:18 79 120/64 10/07/21 20:14 82 98 10/07/21 20:09 84 99 10/07/21 20:04 84 98 10/07/21 20:02 96 H 137/73 10/07/21 19:59 85 98 10/07/21 19:54 85 98 10/07/21 19:49 84 135/73 99 10/07/21 19:44 97 H 98 10/07/21 19:39 82 99 10/07/21 19:36 81 93 10/07/21 19:34 91 H 98 10/07/21 19:32 85 110/53 10/07/21 19:29 77 98 10/07/21 19:24 83 100 10/07/21 19:19 83 99 10/07/21 19:17 86 123/64 10/07/21 19:14 86 100 10/07/21 19:09 92 H 100 10/07/21 19:04 93 H 100 10/07/21 19:03 91 H 133/81 10/07/21 19:02 98.6 F 100 10/07/21 18:59 102 H 100 10/07/21 18:54 95 H 100 10/07/21 18:49 99 H 100 10/07/21 18:47 94 H 131/67 10/07/21 18:44 94 H 99 10/07/21 18:39 97 H 98 10/07/21 18:34 90 99 10/07/21 18:32 100 H 122/65 10/07/21 18:29 94 H 98 10/07/21 18:24 100 H 99 10/07/21 18:19 93 H 99 10/07/21 18:17 86 130/67 10/07/21 18:14 98 H 100 10/07/21 18:09 91 H 100 10/07/21 18:04 90 100 10/07/21 18:02 91 H 132/69 10/07/21 18:00 91 H 146/79 10/07/21 17:59 93 H 99 10/07/21 17:58 102 H 143/83 10/07/21 17:56 102 H 140/73 10/07/21 17:54 97 H 156/83 100 10/07/21 17:53 95 H 151/73 10/07/21 17:49 102 H 100 10/07/21 17:44 102 H 100 10/07/21 17:39 100 H 100 10/07/21 17:34 96 H 100 10/07/21 17:29 100 H 98 10/07/21 17:24 98 H 99 10/07/21 17:19 122 H 97 Intake and Output 10/07/21 10/08/21 10/08/21 23:59 07:59 15:59 Intake Total 67.734 Output Total 100 1949 Balance -32.266 -1950 Intake: IV 67.734 PITOCin/NS 30 UNIT/500ML 67.734 30 units In 500 ml @ 4 mls/hr IV TITR ERIC Rx#: [id number] Output: Urine 100 1950 Indwelling Catheter 1650 Uretheral (Garnett) 100 Void 300 Other: Total, Output Amount 300 Estimated Blood Loss 150 - Exam Breasts: Present: normal Cardiovascular: Present: Regular rate Lungs: Present: Clear to auscultation, Normal air movement Abdomen: Present: normal appearance Vulva: both: normal Uterus: Present: normal, firm, fundal height above umbilicus Extremities: Present: normal Deep Tendon Reflex Grade: Normal +2 - Labs Labs: Abnormal lab results 10/08/21 Range/Units 05:55 Magnesium 4.00 H (1.7-2.3) mg/dL
--- NOTE | 2021-10-08 14:03 | Post Anesthesia Evaluation ---
- Post Anesthesia Evaluation Patient Participated: Yes Airway Patent: Yes Stable Respiratory Function: Yes Nausea/Vomiting: No Temp > 96.8F: Yes Pain Manageable: Yes Adequeate Hydration: Yes Anesthesia Complications: No Block Receding Appropriately: Yes Patient on Ventilator: No Other Comments: Patient stated that she was feeling better today than yesterday. Adequate voiding and intake.
[2021-10-08 16:09] LABS: Hematocrit 26.9 % (30.3-42.9); Hemoglobin 8.5 gm/dl (10.1-14.3)
[2021-10-08] MEDS ORDERED: LACTATED RINGERS 1,000 ML ONE (17:34)
[2021-10-08] MEDS: FERROUS SULFATE 325 MG TAB PO SCH (22:42)
[2021-10-09] MEDS: IBUPROFEN 800 MG TAB PO SCH ×2 (00:55→03:34)
--- NOTE | 2021-10-09 06:29 | Discharge Summary ---
Providers - Providers Date of Admission: 10/04/21 19:52 Date of discharge: 10/09/21 (desires d/c home) Attending physician: KEVIN MARTEL 10/08/21 09:34 Consult to [employer] [CONS] Routine Reason For Exam: assistance with , SNS Primary care physician: KEVIN MARTEL Hospitalization Reason for admission: IOL for mild pre-e Condition: Good Pertinent studies: post delivery H&H 8.5/26.9, asymptomatic anemia d/t acute blood loss. Procedures: Hospital course: and course complicated by mild pre-e Disposition: 01 HOME / SELF CARE / HOMELESS Final Discharge Diagnosis (Prints w/discharge instructions): vaginal , mild pre-eclampsia Time spent for discharge: 25 - Discharge Diagnoses (1) Preeclampsia Status: Acute Qualifiers: Trimester: third trimester Qualified Code(s): O14.93 - Unspecified pre- eclampsia, third trimester (2) (normal spontaneous vaginal delivery) Status: Acute Core Measure Documentation - Palliative Care Palliative Care/ Comfort Measures: Not Applicable - Core Measures Any of the following diagnoses?: none Exam - Physical Exam Narrative exam: lochia scant, fundus firm, bottle feeding infant. VSSAF. denies MACK, visual change or epigastric pain. - Constitutional Vitals: Temp Pulse Resp BP Pulse Ox 98.2 F 83 18 105/62 100 10/09/21 01:30 10/09/21 01:30 10/09/21 01:30 10/09/21 01:30 10/09/21 01:30 General appearance: Present: no acute distress, well-nourished - EENT Eyes: Present: PERRL ENT: hearing intact, clear oral mucosa - Neck Neck: Present: supple, normal ROM - Respiratory Respiratory effort: normal Respiratory: bilateral: CTA - Cardiovascular Rhythm: regular Heart Sounds: Absent: rub, click - Extremities Extremities: pulses symmetrical, No edema Peripheral Pulses: within normal limits - Abdominal General gastrointestinal: Present: soft, non-tender, non-distended, normal bowel sounds Female genitourinary: Present: normal - Integumentary Integumentary: Present: clear, warm, dry - Musculoskeletal Musculoskeletal: gait normal, strength equal bilaterally - Psychiatric Psychiatric: appropriate mood/affect, intact judgment & insight - Neurologic Neurologic: CNII-XII intact, moves all extremities Plan Activity: no restrictions Diet: regular Follow up with: KEVIN MARTEL MD [Primary Care Provider] - 7 Days (Congratulation! Please call [phone] to schedule your son's circumcision and your blood pressure check in 1 week. Bring EMLA cream to your son's appointment and wait for further teaching. Call with any questions or concerns. Your prescriptions have been electronically sent to your pharmacy.) Prescriptions: Lidocain2.5%/Prilocai2.5% [Emla] 5 gm TP ONCE PRN #1 tube PRN Reason: Pain Ferrous Sulfate [Feosol 325 MG tab] 325 mg PO QDAY #30 tablet labetaloL [Labetalol 200mg TAB] 200 mg PO BID #60 tab Ibuprofen [Motrin 800 MG tab] 800 mg PO Q8HR PRN #30 tablet PRN Reason: Pain
[2021-10-09] MEDS: FERROUS SULFATE 325 MG TAB PO SCH ×2 (10:37→22:00)
[2021-10-09] MEDS: PRENATAL VIT27-FE FUMARATE-FOLIC ACID VIT TAB PO SCH (10:38)
[2021-10-09] MEDS: DOCUSATE SODIUM 100 MG CAP PO SCH ×2 (10:38→22:00)
[2021-10-09 22:00] VITALS: BP 135/83
[2021-10-10] MEDS ORDERED: TETANUS,DIPH,PERTUSS(ACELL) VACCINE 0.5 ML SYRINGE IM ONE (06:00)
== END 2021-10-09 22:31 | disposition home or self-care (01) | DRG 774 ==
LOC: TRG 16:02 → APU 16:04 → OBSVTOIN 19:52 → TRG 19:52 → LD 19:52 → OB 10-09 00:56
PROVIDERS: ADMIT Obstetrics & Gynecology; ATTEND Obstetrics & Gynecology
PROC: 10E0XZZ Delivery of Products of Conception, External Approach (ICD-10-PCS; principal; 2021-10-08)
PROC: 10907ZC Drainage of Amniotic Fluid, Therapeutic from Products of Conception, Via Natural or Artificial Opening (ICD-10-PCS; 2021-10-08)
PROC: 3E0R3BZ Introduction of Anesthetic Agent into Spinal Canal, Percutaneous Approach (ICD-10-PCS; 2021-10-08)
PROC: 00HU33Z Insertion of Infusion Device into Spinal Canal, Percutaneous Approach (ICD-10-PCS; 2021-10-08)
PROC: 3E0234Z Introduction of Serum, Toxoid and Vaccine into Muscle, Percutaneous Approach (ICD-10-PCS; 2021-10-09)
DX: O14.93 Unspecified pre-eclampsia, third trimester (principal); D56.3 Thalassemia minor; Z20.822 Contact with and (suspected) exposure to COVID-19; O99.02 Anemia complicating childbirth; O14.94 Unspecified pre-eclampsia, complicating childbirth; O69.81X0 Labor and delivery complicated by cord around neck, without compression, not applicable or unspecified; Z3A.37 37 weeks gestation of pregnancy; Z37.0 Single live birth; Z23 Encounter for immunization
CPT/HCPCS: 36415; 59025; 76815; 81001; 82565; 82570; 83615; 83735; 84156; 84450; 84460; 84550; 85014; 85018; 85027; 86592; 86850; 86900; 86901; 87086; 88307; G0378; J3490; J2590; J3010; J3475; J7120; U0003